=== PATIENT | female | born 2000 | race American Indian/Alaskan Native ===

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

== ENCOUNTER 2018-11-15 12:11 | Outpatient (CLI) | payer OTHER ==
[2018-11-15] MEDS ORDERED: LACTATED RINGERS 500 ML IV ONE (13:04)
[2018-11-15 13:39] LABS: Bacteria,Urine 2+ /HPF (Negative); Bilirubin,Urine NEG (Negative); Blood,Urine NEG (Negative); Color,Urine Yellow (Yellow); Mucus,Urine 2+ /HPF; WBC,Urine > 182.0 /HPF (0.0-6.0)
[2018-11-15 14:12] LABS: Hematocrit 30.6 % (30.3-42.9); Hemoglobin 10.5 gm/dl (10.1-14.3); Mean Corpuscular HGB Conc 34 % (30-34); Mean Corpuscular Volume 98 fl (79-97); Platelet Count 260 K/mm3 (140-440); Red Blood Count 3.14 M/mm3 (3.65-5.03); Red Cell Distribution Width 12.3 % (13.2-15.2)
[2018-11-15 14:20] VITALS: BP 114/68
[2018-11-15] MEDS ORDERED: TYLENOL PO ONE (14:30)
[2018-11-15 14:37] LABS: Alanine Aminotransferase 13 units/L (7-56)
[2018-11-15 15:41] LABS: Uric Acid 1.7 mg/dL (3.5-7.6)
== END 2018-11-15 14:50 | disposition home or self-care (01) ==
LOC: TRG 12:11
PROVIDERS: ATTEND Obstetrics & Gynecology
DX: O47.03 False labor before 37 completed weeks of gestation, third trimester (principal); Z3A.33 33 weeks gestation of pregnancy
CPT/HCPCS: 36415; 59025; 81001; 82565; 83615; 84450; 84460; 84550; 85027; 87086; 87186

== ENCOUNTER 2018-12-23 13:01 | Inpatient (IN) | payer OTHER ==
[2018-12-23 14:44] LABS: Hematocrit 29.5 % (30.3-42.9); Hemoglobin 9.9 gm/dl (10.1-14.3); Mean Corpuscular HGB Conc 34 % (30-34); Mean Corpuscular Volume 98 fl (79-97); Platelet Count 191 K/mm3 (140-440); Red Blood Count 3.02 M/mm3 (3.65-5.03); Red Cell Distribution Width 13.7 % (13.2-15.2)
[2018-12-23] MEDS ORDERED: LACTATED RINGERS 1,000 ML IV ONE (15:01)
[2018-12-23 15:09] LABS: Alanine Aminotransferase 13 units/L (7-56)
[2018-12-23 16:53] LABS: Bilirubin,Urine NEG (Negative); Blood,Urine LG (Negative); Color,Urine Yellow (Yellow); Mucus,Urine 1+ /HPF; Urobilinogen,Urine < 2.0 mg/dL (<2.0)
[2018-12-23 16:56] LABS: Protein,Urine >500 mg/dL (Negative); RBC,Urine > 182.0 /HPF (0.0-6.0)
--- NOTE | 2018-12-23 20:43 | Ultrasound Report ---
PROCEDURE: US OB BPP WO NON-STRESS TECHNIQUE: Sonographic evaluation for breathing, movement, tone, and amniotic flui d volume was performed. HISTORY: elevated BP COMPARISONS: None . FINDINGS: FETUS heart rate is 140 bpm Amniotic fluid volume 0. breathing: Normal-score 2 . movement: Normal-score 2 . tone: 0. Score: 4 of 8 . IMPRESSION: biophysical profile is 4. This document is electronically signed by Ulises Edmondson MD., December 23 2018 08:41:53 PM ET
[2018-12-23] MEDS ORDERED: SUBLIMAZE IV PRN (22:05)
[2018-12-23] MEDS ORDERED: BRETHINE IVP PRN (22:05)
[2018-12-23] MEDS ORDERED: NARCAN 0.4 MG/1 ML IV PRN (22:05)
[2018-12-23] MEDS ORDERED: BRETHINE SUB-Q PRN (22:05)
[2018-12-23] MEDS ORDERED: ZOFRAN IV PRN (22:05)
[2018-12-23] MEDS ORDERED: PHENERGAN PO PRN (22:05)
[2018-12-23] MEDS ORDERED: XYLOCAINE 2% INFILTRATI ONE (22:05)
[2018-12-23] MEDS ORDERED: MINERAL OIL PO PRN (22:05)
--- NOTE | 2018-12-23 22:08 | History and Physical Report ---
History of Present Illness Date of examination: 12/23/18 Date of admission: 12/23/18 13:02 Chief complaint: Sent from office for PIH work up History of present illness: 18 yo AA fe KAMILA 12/29/2018 (LMP) 39 weeks 1 day, sent from the office for evaluation of PIH. BPP 01/19. PIH labs WNL. Asymptomatic anemia. FHTs Tachycardia 160-170s. Afebrile. WBC wnl. Pt initiated early care with [facility] at 10w 2d. Positive chlamydia with Negative VIKA. labs: B positive, Rubella Immune, VDRL non-reactive, HbsAg Negative, HIV Negative, GC/Trich Negative. GBS Negative Past History Past Medical History: no pertinent history Past Surgical History: other (wrist surgery) [employer]TER History: chlamydia (Positive 06/11/2018, Negative VIKA). denies: abnormal PAP smear, gonorrhea, hepatitis B, hepatitis C, herpes, HIV, syphilis, trichomonas Family/Genetic History: heart disease Social history: no significant social history, single, lives with family, full code. denies: smoking, alcohol abuse, prescription drug abuse, IV drug use - Obstetrical History Expected Date of Delivery: 12/29/18 Actual Gestation: 39 Week(s) 1 Day(s) : 1 Para: 0 Hx # Term Pregnancies: 0 Number of Pregnancies: 0 Spontaneous Abortions: 0 Induced : 0 Number of Living Children: 0 Medications and Allergies Allergies Allergy/AdvReac Type Severity Reaction Status Date / Time coconut Allergy Angioedema Verified 09/08/17 11:41 nickel Allergy Rash Verified 09/08/17 11:41 Home Medications Medication Instructions Recorded Confirmed Last Taken Type Acetaminophen 500 mg PO Q6H PRN #30 tablet 07/25/18 Unknown Rx Amoxicillin/K Clav Tab [Augmentin 1 tab PO Q12HR #20 tab 07/25/18 Unknown Rx 875 mg] Review of Systems Eyes: normal appearance Cardiovascular: no chest pain, no shortness of breath Respiratory: no shortness of breath Breasts: normal Gastrointestinal: no abdominal pain, no nausea, no vomiting, no diarrhea, no constipation Genitourinary: normal appearance, no vaginal bleeding, no leakage of fluid, no genital sores, no contractions Integumentary: no rash, no wounds, no lesions Neurological: other (Denies) Psychiatric: other (Denies) Endocrine: other (Denies) - Vital Signs Vital signs: Vital Signs Pulse BP 81 140/76 12/23/18 13:16 12/23/18 13:16 Temp Pulse Resp BP Pulse Ox 98.6 F 79 18 144/81 96 12/23/18 13:17 12/23/18 22:02 12/23/18 13:17 12/23/18 22:00 12/23/18 22:02 - Physical Exam Breasts: Positive: normal Cardiovascular: Regular rate, Normal S1, Normal S2, No murmurs Lungs: Positive: Clear to auscultation, Normal air movement Abdomen: Positive: normal appearance, soft, normal bowel sounds. Negative: distention Genitourinary (Female): Positive: normal external genitalia, normal perenium Vulva: both: normal Vagina: Positive: normal moisture Uterus: Positive: enlarged (gravid) Anus/Rectum: Positive: normal perianal skin Extremities: Positive: normal Deep Tendon Reflex Grade: Normal +2 - Obstetrical FHR: category 2 FHR comments: tachycardia 165, minimal variability, no accels, no decels. Uterine Contraction Monitor Mode: External Cervical Dilatation: 2 (Cephalic) Cervical Effacement Percentage: 75 station: -3 Uterine Contraction Pattern: Irregular Uterine Tone Measurement Phase: Resting Uterine Contraction Intensity: Mild Results Result Diagrams: 12/23/18 13:43 12/23/18 13:43 Abnormal lab results 12/23/18 12/23/18 12/23/18 Range/Units 13:43 13:43 13:45 RBC 3.02 L (3.65-5.03) M/mm3 Hgb 9.9 L (10.1-14.3) gm/dl Hct 29.5 L (30.3-42.9) % MCV 98 H (79-97) fl MCH 33 H (28-32) pg Lactate Dehydrogenase 283 H (91-180) units/L Urine WBC (Auto) 34.0 H (0.0-6.0) /HPF All other labs normal. Assessment and Plan A: Term IUP at 39w1d GBS Negative Irregular contractions Category2 tracing BPP 4/10 tachycardia Nonreassuring NST P: Admit to L&D Consult with Dr. Castaneda: Pt remote from delivery with nonreassuring FHT and BPP 4/10. Plan to proceed with Primary section. Pt informed and agrees to POC.
[2018-12-23] MEDS ORDERED: LACTATED RINGERS 1,000 ML ONE (22:09)
[2018-12-23] MEDS ORDERED: BICITRA PO ONE (22:38)
[2018-12-23] MEDS ORDERED: PEPCID IV ONE (22:38)
[2018-12-23] MEDS ORDERED: REGLAN IV ONE (22:38)
[2018-12-23] MEDS ORDERED: PITOCin/NS 30 UNIT/500ML 30 UNITS/500 ML BAG IV SCH (23:00)
[2018-12-23] MEDS ORDERED: LACTATED RINGERS 1,000 ML IV SCH ×2 (23:00)
[2018-12-23] MEDS ORDERED: ANCEF/STERILE WATER 2 GM/20 ML 2 GM/20 ML SYRINGE IV NR (23:00)
[2018-12-23] MEDS ORDERED: PITOCin/NS 20 UNIT/1000ML DRIP 20 UNITS/1,000 ML BAG IV SCH ×2 (23:00)
[2018-12-23 23:15] LABS: Hematocrit 30.2 % (30.3-42.9); Hemoglobin 10.2 gm/dl (10.1-14.3)
[2018-12-24] MEDS ORDERED: ZOFRAN IV PRN (03:54)
[2018-12-24] MEDS ORDERED: PHENERGAN PR PRN (03:54)
[2018-12-24] MEDS ORDERED: NARCAN 0.4 MG/1 ML IV PRN ×2 (03:54→05:12)
[2018-12-24] MEDS ORDERED: PHENERGAN PO PRN (03:54)
--- NOTE | 2018-12-24 03:54 | Anesthesia Consultation ---
Anesthesia Consult and Med Hx Date of service: 12/24/18 - Airway Anesthetic Teeth Evaluation: Good ROM Head & Neck: Adequate Mental/Hyoid Distance: Adequate Mallampati Class: Class II Intubation Access Assessment: Probably Good - Pulmonary Exam CTA: Yes - Cardiac Exam Cardiac Exam: RRR - Pre-Operative Health Status ASA Pre-Surgery Classification: ASA2, Emergency Proposed Anesthetic Plan: Spinal - Pulmonary Hx Asthma: No COPD: No Hx Pneumonia: No - Cardiovascular System Hx Hypertension: No - Central Nervous System Hx Seizures: No Hx Psychiatric Problems: No - Endocrine Hx Renal Disease: No Hx End Stage Renal Disease: No Hx Hypothyroidism: No Hx Hyperthyroidism: No - Hematic Hx Anemia: No Hx Sickle Cell Disease: No - Other Systems Hx Alcohol Use: No
[2018-12-24] MEDS ORDERED: SUBLIMAZE ONE (03:58)
[2018-12-24] MEDS ORDERED: NACL 0.9% IR ONE (04:00)
[2018-12-24] MEDS ORDERED: WATER FOR IRRIG STERILE IR ONE (04:00)
[2018-12-24] MEDS ORDERED: SODIUM CHLORIDE FLUSH SYRINGE 10 ML IV PRN ×2 (04:00→06:00)
[2018-12-24] MEDS ORDERED: ZOFRAN ONE (04:23)
[2018-12-24] MEDS: PITOCin/NS 20 UNIT/1000ML DRIP 20 UNITS/1,000 ML BAG IV SCH ×2 (04:34→05:52)
--- NOTE | 2018-12-24 05:11 | Operative Report ---
Operative Report Operative Report: Date of procedure: 12/24/2018 Pre-operative diagnosis: 1. Intrauterine at 39-1/7 weeks 2. Non-r eassuring surveillance Post-operative diagnosis: Same Procedure name(s): Primary low transverse section Surgeon: Mazin Castaneda MD Acupressure Therapist: None Anesthesia: Spinal anesthesia by Dr. Momin EBL: 600 mL Findings: A 2696 g female infant Apgars 8 at 1 minute 9 at 5 minutes. Clear amniotic fluid. Nuchal cord 1. Normal uterus. Normal tubes and ovaries bilaterally Procedure: After the patient was prepped and draped in usual sterile fashion, and after satisfactory level of epidural anesthesia was obtained, the skin knife was used to make a transverse skin incision. The incision was excised down to layer of the fascia, which was nicked in the midline and extended laterally using the Bovie cautery. The rectus muscles were dissected off the rectus fascia both superiorly and inferiorly. The rectus bellies in the midline, and the peritoneum was entered under direct visualization. The peritoneal incision was extended superiorly and inferiorly. A bladder flap was created and the bladder blade was then placed. The uterus was scored in a curvilinear linear fashion, entered in the midline revealing clear amniotic fluid. The 's head was delivered onto the surgical field, nuchal cord 1 reduced and the oropharynx and nasopharynx were bulb suctioned. The rest of the 's body was delivered, cord was doubly clamped and cut and the infant was handed to the waiting respiratory team. The placenta was manually removed from the uterus, and the uterus removed from its normal anatomical position. After gentle uterine lavage, the incision was inspected and found to be without extensions. It was then closed in 2 layers using 0 Vicryl suture in a running interlocking fashion, the second layer imbricating the first. After good hemostasis was achieved, copious amounts or irrigation was performed, and the gutters were suctioned free of blood and blood clots. Tisseel sealant was sprayed across the uterine incision. The uterus was then returned to its normal anatomical position, and after excellent hemostasis assured, the peritoneum was re-approximated using 3-0 Vicryl suture in a running interlocking fashion, and then the rectus muscles were re-approximated using 3-0 Vicryl suture in a [id number] configuration. The fascia was then re-approximated using 0 Vicryl suture in running interlocking fashion. The subcutaneous layer was made hemostatic using Bovie cautery, the Tisseel sealant was sprayed across the fascial incision and the skin edges re-approximated using 4-0 Vicryl suture in a sub-cuticular fashion. Patient tolerated the procedure well was transported to recovery in stable condition.
[2018-12-24] MEDS ORDERED: TORADOL IV PRN (05:12)
[2018-12-24] MEDS ORDERED: MILK OF MAGNESIA PO PRN (05:12)
[2018-12-24] MEDS ORDERED: LANSINOH TP PRN (05:12)
[2018-12-24] MEDS ORDERED: TUCKS PAD TP PRN (05:12)
[2018-12-24] MEDS ORDERED: MYLICON PO PRN (05:12)
[2018-12-24] MEDS ORDERED: SENOKOT PO PRN (05:12)
[2018-12-24] MEDS ORDERED: D5LR 1,000 ML IV SCH (06:00)
[2018-12-24] MEDS: PERCOCET 5/325 PO PRN ×2 (07:17→14:14)
[2018-12-24] MEDS: IBUPROFEN PO PRN ×2 (07:19→14:15)
[2018-12-24] MEDS: PRENATAL VITAMIN PO SCH (11:00)
[2018-12-24] MEDS: FEOSOL PO SCH (11:00)
[2018-12-24] MEDS: ANCEF/NS 1 GM/50 ML 1 GM/50 ML BAG IV SCH (16:46)
[2018-12-24 18:43] LABS: Hematocrit 27.5 % (30.3-42.9); Hemoglobin 9.5 gm/dl (10.1-14.3)
[2018-12-25] MEDS: NORCO 5/325 PO PRN (02:39)
[2018-12-25] MEDS: IBUPROFEN PO PRN ×3 (02:40→20:32)
[2018-12-25] MEDS: ANCEF/NS 1 GM/50 ML 1 GM/50 ML BAG IV SCH (02:41)
[2018-12-25] MEDS ORDERED: M-M-R II VACCINE SUB-Q ONE ×2 (05:14→10:00)
[2018-12-25] MEDS ORDERED: BOOSTRIX IM ONE (06:00)
[2018-12-25] MEDS: PERCOCET 5/325 PO PRN ×2 (08:28→17:51)
[2018-12-25] MEDS: FEOSOL PO SCH (11:00)
[2018-12-25] MEDS: PRENATAL VITAMIN PO SCH (11:01)
--- NOTE | 2018-12-25 15:04 | Progress Note ---
Assessment and Plan A: /postop day 1 S/P primary low transverse section. Anemia secondary to and blood loss. Labile blood pressures. P: Recheck blood pressure. Labetalol po. PreE labs (urinalysis, CBC, CMP). Iron supplementation. Patient is currently asymptomatic; warning signs discussed with pt. Subjective - Subjective Date of service: 12/25/18 Principal diagnosis: /postop day 1 S/P primary low transverse section Interval history: /postop day 1 S/P primary low transverse section. Patient is doing well. She reports small amount of lochia and no large clots. Patient is voiding without difficulty, ambulating well, passing gas, tolerating a regular diet without nausea or vomiting. Patient denies headache, visual disturbance, chest pain, shortness of breath, leg pain, abdominal pain, swelling, heavy bleeding or any other problems. Patient reports: appetite normal, voiding normally, pain well controlled, flatus, bowel movement, ambulating normally, no dizzy ambulation, no nauseated : doing well Objective - Vital Signs Latest vital signs: Vital Signs Temp Pulse Resp BP BP Pulse Ox 12/25/18 08:10 98.5 F 72 20 147/98 97 12/25/18 06:10 97.8 F 70 18 133/85 12/25/18 01:40 98.1 F 78 18 147/87 12/24/18 21:25 97.9 F 79 20 129/79 12/24/18 17:32 98.9 F 75 18 144/90 98 Intake and Output 12/24/18 12/25/18 12/25/18 23:59 07:59 15:59 Intake Total 1530 260 120 Output Total 1300 Balance 230 260 120 Intake: IV 50 ANCEF/NS 1 GM/50 ML 1 gm 50 In 50 ml @ 100 mls/hr IV Q8H [facility] Rx#:[id number] Oral 840 120 Intake, Free Water 640 260 Output: Urine 1300 Indwelling Catheter 1300 Other: Total, Intake Amount 840 120 Total, Output Amount 1300 # Voids Void 1 1 - Exam Cardiovascular: Present: Regular rate, Normal S1, Normal S2 Lungs: Present: Clear to auscultation Abdomen: Present: normal appearance, soft, normal bowel sounds. Absent: distention, tenderness, guarding, rigidity Uterus: Present: normal, firm, fundal height below umbilicus. Absent: bogginess, tenderness Extremities: Present: normal, edema (edema of both ankles and feet). Absent: tenderness Incision: Present: normal, dry, intact, dressed - Labs Labs: Abnormal lab results 12/24/18 Range/Units 17:50 Hgb 9.5 L (10.1-14.3) gm/dl Hct 27.5 L (30.3-42.9) %
[2018-12-25] MEDS ORDERED: NORMODYNE PO SCH ×3 (16:00→20:00)
[2018-12-25 16:59] LABS: Basophils % (Auto) 0.2 % (0.0-1.8); Eosinophils # (Auto) 0.1 K/mm3 (0.0-0.4); Eosinophils % (Auto) 0.7 % (0.0-4.3); Hematocrit 28.7 % (30.3-42.9); Hemoglobin 9.6 gm/dl (10.1-14.3); Lymphocytes # (Auto) 2.1 K/mm3 (1.2-5.4); Lymphocytes % (Auto) 18.9 % (13.4-35.0); Mean Corpuscular HGB Conc 33 % (30-34); Mean Corpuscular Volume 98 fl (79-97); Monocytes % (Auto) 9.1 % (0.0-7.3); Platelet Count 195 K/mm3 (140-440); Red Blood Count 2.93 M/mm3 (3.65-5.03)
[2018-12-25 17:08] LABS: Alanine Aminotransferase 22 units/L (7-56); Albumin 2.6 g/dL (3.9-5); BUN/Creatinine Ratio 14; Blood Urea Nitrogen 7 mg/dL (7-17); Calcium 8.2 mg/dL (8.4-10.2); Hemolysis Index 9
[2018-12-25 17:36] LABS: Bilirubin,Urine NEG (Negative); Blood,Urine LG (Negative); Color,Urine Red (Yellow); Urobilinogen,Urine < 2.0 mg/dL (<2.0)
[2018-12-25 17:39] LABS: RBC,Urine > 182.0 /HPF (0.0-6.0)
[2018-12-25] MEDS ORDERED: NORMODYNE PO ONE (19:20)
--- NOTE | 2018-12-25 19:55 | Event Note ---
Date: 12/25/18 Several elevated blood pressures. Patient denies headache, visual disturbance, nausea or vomiting, abdominal or epigastric pain. Has dependent edema only; no generalized edema. Increased Labetalol dose to 100 mg po BID. Consulted with Dr. Cade re: this patient and elevated blood pressure and interventions taken.
[2018-12-25] MEDS: D5LR 500 ML IV SCH (22:40)
[2018-12-25] MEDS: ROCEPHIN/NS 1 GM/50 ML 1 GM/50 ML BAG IV SCH (22:40)
[2018-12-26] MEDS: PERCOCET 5/325 PO PRN ×2 (02:21→08:48)
[2018-12-26] MEDS: NORMODYNE PO SCH ×3 (05:46→22:17)
[2018-12-26] MEDS: PRENATAL VITAMIN PO SCH (09:42)
[2018-12-26] MEDS: ROCEPHIN/NS 1 GM/50 ML 1 GM/50 ML BAG IV SCH ×2 (09:42→22:17)
[2018-12-26] MEDS: FEOSOL PO SCH (09:42)
[2018-12-26] MEDS: IBUPROFEN PO PRN (16:47)
[2018-12-26] MEDS: NORCO 5/325 PO PRN (16:48)
--- NOTE | 2018-12-26 23:48 | Progress Note ---
Assessment and Plan A: day 2 S/P low transverse section. Anemia secondary to and blood loss. P: Continue iron supplementation. Continue PO Labetalol. Subjective - Subjective Date of service: 12/26/18 Principal diagnosis: /postop day 2 S/P primary low transverse section Interval history: /postop day 2 S/P primary low transverse section. Patient is doing well. She reports small amount of lochia and no large clots. Patient is voiding without difficulty, ambulating well, passing gas, tolerating a regular diet without nausea or vomiting. Patient denies headache, visual disturbance, chest pain, shortness of breath, leg pain, abdominal pain, swelling, heavy bleeding or any other problems. Patient reports: appetite normal, voiding normally, pain well controlled, flatus, ambulating normally, no dizzy ambulation, no nauseated : doing well Objective - Vital Signs Latest vital signs: Vital Signs Temp Pulse Resp BP BP Pulse Ox 12/26/18 21:04 98.6 F 74 20 144/76 95 12/26/18 16:45 98.9 F 76 20 149/91 96 12/26/18 12:37 99.4 F 81 20 140/87 98 12/26/18 09:43 73 140/73 12/26/18 07:58 98.5 F 78 20 140/81 96 12/26/18 05:46 75 136/69 12/26/18 04:55 98.7 F 75 18 138/69 12/26/18 01:50 98.8 F 76 20 153/89 Intake and Output 12/26/18 12/26/18 12/26/18 07:59 15:59 23:59 Intake Total 240 290 240 Balance 240 290 240 Intake: IV 50 ROCEPHIN/NS 1 GM/50 ML 1 50 gm In 50 ml @ 100 mls/hr IV Q12HR [facility] Rx#: [id number] Oral 240 240 Intake, Free Water 240 Other: Total, Intake Amount 240 240 Voiding Method Toilet # Voids Void 2 1 1 # Bowel Movements 1 - Exam Abdomen: Present: normal appearance, soft. Absent: distention, tenderness, guarding, rigidity Uterus: Present: normal, firm, fundal height below umbilicus. Absent: bogginess, tenderness Extremities: Present: normal. Absent: tenderness, edema Incision: Present: normal, dry, intact
[2018-12-27] MEDS: PERCOCET 5/325 PO PRN ×4 (02:46→23:20)
[2018-12-27] MEDS ORDERED: NORMODYNE ONE (09:29)
[2018-12-27] MEDS: FEOSOL PO SCH (11:52)
[2018-12-27] MEDS: PRENATAL VITAMIN PO SCH (11:53)
[2018-12-27] MEDS: NORMODYNE PO SCH ×2 (11:55→18:35)
[2018-12-27 13:20] LABS: Bacteria,Urine 1+ /HPF (Negative); Bilirubin,Urine NEG (Negative); Blood,Urine MOD (Negative); Color,Urine Straw (Yellow); Urobilinogen,Urine < 2.0 mg/dL (<2.0)
[2018-12-27 13:38] LABS: Hematocrit 26.6 % (30.3-42.9); Mean Corpuscular HGB Conc 34 % (30-34); Mean Corpuscular Volume 97 fl (79-97); Platelet Count 213 K/mm3 (140-440); Red Blood Count 2.74 M/mm3 (3.65-5.03); Red Cell Distribution Width 14.6 % (13.2-15.2)
[2018-12-27 13:57] LABS: Uric Acid 3.4 mg/dL (3.5-7.6)
--- NOTE | 2018-12-27 14:21 | Progress Note ---
Assessment and Plan - Patient Problems (1) S/P primary low transverse Current Visit: Yes Status: Acute Plan to address problem: POD #3 - Elevated BPs Continue routine postop orders Ambulation encouraged as tolerated Anticipate discharge based on lab results (2) Gestational hypertension Current Visit: Yes Status: Acute Plan to address problem: BPs elevated - asymptomatic Continue antihypertensive therapy: Labetalol 200mg PO BID PIH labs ordered (3) Anemia due to blood loss, acute Current Visit: Yes Status: Acute Plan to address problem: Asymptomatic Continue iron therapy: Ferrous sulfate 325mg PO QDAY Subjective - Subjective Date of service: 12/27/18 Principal diagnosis: POD #3; s/p Primary LTCS; Gestational HTN Interval history: see H&P, Operative Report, Even Note, PP/HEALTH AND SAFETY TECH Progress Notes Patient reports: appetite normal, voiding normally, pain well controlled, flatus, bowel movement, ambulating normally, other (denies headache, visual disturbances or RUQ pain), no dizzy ambulation Lucas: doing well, other (breast and bottle feeding) Objective - Vital Signs Latest vital signs: Vital Signs Temp Pulse Resp BP BP Pulse Ox 12/27/18 13:00 97 F L 75 20 154/90 12/27/18 11:55 68 154/103 12/27/18 11:53 20 12/27/18 09:30 68 154/103 12/27/18 08:45 97.8 F 68 20 154/103 12/27/18 02:46 18 12/27/18 01:16 98.2 F 78 20 144/82 96 12/26/18 21:04 98.6 F 74 20 144/76 95 12/26/18 16:45 98.9 F 76 20 149/91 96 Intake and Output 12/26/18 12/27/18 12/27/18 23:59 07:59 15:59 Intake Total 240 240 120 Balance 240 240 120 Intake: Oral 240 240 120 Other: Total, Intake Amount 240 240 120 # Voids Void 1 1 1 # Bowel Movements 1 - Exam Cardiovascular: Present: Regular rate Lungs: Present: Clear to auscultation Abdomen: Present: normal appearance, soft Vulva: both: normal Uterus: Present: normal, firm, fundal height below umbilicus Incision: Present: normal, dry, intact (steri strips in place) Comments: scant lochia - Labs Labs: Abnormal lab results 12/27/18 12/27/18 12/27/18 Range/Units 12:48 13:21 13:21 WBC 13.4 H (4.5-11.0) K/mm3 RBC 2.74 L (3.65-5.03) M/mm3 Hgb 9.0 L (10.1-14.3) gm/dl Hct 26.6 L (30.3-42.9) % MCH 33 H (28-32) pg Uric Acid 3.4 L (3.5-7.6) mg/dL AST 65 H (5-40) units/L Lactate Dehydrogenase 379 H (91-180) units/L Urine WBC (Auto) 10.0 H (0.0-6.0) /HPF
[2018-12-27] MEDS ORDERED: MAGNESIUM SULFATE 4GM/100ML 4 GM/100 ML BAG IV ONE ×2 (14:43→15:21)
--- NOTE | 2018-12-27 14:55 | Progress Note ---
Assessment and Plan - Patient Problems (1) S/P primary low transverse Current Visit: Yes Status: Acute (2) Pre-eclampsia Current Visit: Yes Status: Acute Plan to address problem: Will start magnesium sulfate loading and maintenance at 2gm/hr. Monitor Mg level, urine output, DTRs. Monitor BP. Continue labetolol 200 mg BID. Will give hydralazine as needed for BP>100. Subjective - Subjective Date of service: 12/27/18 Principal diagnosis: POD #3; s/p Primary LTCS, pre-eclampsia Interval history: Patient is a 18 year old who is S/P primary C/section 3 days ago for non-reassuring tracing. She was admitted on 12/23/18 for labor induction d ue to elevated BP. During active labor, she developed distress and was delivered via C/section. Her BP became stable. On POD#1, her BP became elevated again. Toxemia labs were normal. She was s tarted on labetolol 200 mg BID. Today, her BP was noticed to be still unstable in the 150's/90-100's. She denies any symptoms. Toxemia labs showed elevated LFTs. Objective - Vital Signs Latest vital signs: Vital Signs Temp Pulse Resp BP BP Pulse Ox 12/27/18 13:00 97 F L 75 20 154/90 12/27/18 11:55 68 154/103 12/27/18 11:53 20 12/27/18 09:30 68 154/103 12/27/18 08:45 97.8 F 68 20 154/103 12/27/18 02:46 18 12/27/18 01:16 98.2 F 78 20 144/82 96 12/26/18 21:04 98.6 F 74 20 144/76 95 12/26/18 16:45 98.9 F 76 20 149/91 96 Intake and Output 12/26/18 12/27/18 12/27/18 23:59 07:59 15:59 Intake Total 240 240 120 Balance 240 240 120 Intake: Oral 240 240 120 Other: Total, Intake Amount 240 240 120 # Voids Void 1 1 1 # Bowel Movements 1 - Exam Cardiovascular: Present: Normal S1, Normal S2 Lungs: Present: Clear to auscultation Vulva: both: normal Deep Tendon Reflex Grade: Normal but brisk +3 - Labs Labs: Abnormal lab results 12/27/18 12/27/18 12/27/18 Range/Units 12:48 13:21 13:21 WBC 13.4 H (4.5-11.0) K/mm3 RBC 2.74 L (3.65-5.03) M/mm3 Hgb 9.0 L (10.1-14.3) gm/dl Hct 26.6 L (30.3-42.9) % MCH 33 H (28-32) pg Uric Acid 3.4 L (3.5-7.6) mg/dL AST 65 H (5-40) units/L Lactate Dehydrogenase 379 H (91-180) units/L Urine WBC (Auto) 10.0 H (0.0-6.0) /HPF
[2018-12-27] MEDS ORDERED: MAGNESIUM SULFATE 40GM/1000ML 40 GM/1,000 ML BAG IV SCH (15:00)
[2018-12-27] MEDS ORDERED: ROCEPHIN/NS 1 GM/50 ML 1 GM/50 ML BAG IV SCH (15:00)
[2018-12-27] MEDS ORDERED: LACTATED RINGERS 1,000 ML ONE ×2 (15:22→22:26)
[2018-12-27] MEDS ORDERED: MAGNESIUM SULFATE 40GM/1000ML 40 GM/1,000 ML BAG IV ONE (15:58)
[2018-12-27] MEDS ORDERED: APRESOLINE IV PRN (18:15)
[2018-12-27] MEDS: ROCEPHIN/NS 1 GM/50 ML 1 GM/50 ML BAG IV SCH (23:09)
[2018-12-28] MEDS: TYLENOL PO PRN ×2 (01:43→16:40)
[2018-12-28] MEDS: NORMODYNE PO SCH ×3 (06:11→18:27)
--- NOTE | 2018-12-28 10:05 | XRay Report ---
AP CHEST: HISTORY: Leukocytosis, fever AP view of the chest demonstrates a normal mediastinal and cardiac contour with clear lungs and normal bony and soft tissue structures. IMPRESSION: Unremarkable AP chest.
[2018-12-28] MEDS: PRENATAL VITAMIN PO SCH (11:11)
[2018-12-28] MEDS: FEOSOL PO SCH (11:11)
--- NOTE | 2018-12-28 16:46 | Progress Note ---
Assessment and Plan - Patient Problems (1) fever Current Visit: Yes Status: Acute Plan to address problem: Differential diagnosis: Atelectasis, Pneumonia, Wound infection, Urinary tract infection, URI, mastitis. CXR normal. Urine cx pending. Order blood cultures x 2 peripheral sites Tylenol for fever Start Clindamycin, Gentamicin CBC w diff STAT Subjective - Subjective Principal diagnosis: POD #3; s/p Primary LTCS, pre-eclampsia Interval history: 18yo s/p Primary csection now with fever. CXR negative Ulrine culture pending Incision no signs of infection Mons pubis papules from razor shaving Patient denies any URI symptoms, no chest pain, shortness of breath and abdominal pain is appropriate post-csection. She is breast feeding. She is currently on magnesium sulfate for preeclampsia. Objective - Vital Signs Latest vital signs: Vital Signs Temp Pulse Resp BP BP Pulse Ox 12/28/18 12:00 99.3 F 89 18 148/92 12/28/18 06:11 77 136/86 12/28/18 05:20 77 18 136/86 12/28/18 01:55 97 F L 79 18 133/78 12/28/18 00:07 86 18 139/81 12/27/18 22:55 100 F H 91 H 18 148/94 12/27/18 21:18 89 156/96 12/27/18 21:00 101.3 F H 89 18 156/96 12/27/18 20:13 93 H 151/73 12/27/18 20:08 92 H 153/80 12/27/18 20:03 103 H 141/76 12/27/18 19:58 96 H 149/78 12/27/18 19:53 96 H 157/79 12/27/18 19:48 99 H 156/81 12/27/18 19:43 100 H 156/82 12/27/18 19:38 100 H 157/86 12/27/18 19:33 100 H 152/88 12/27/18 19:28 98 H 160/87 12/27/18 19:23 99 H 151/85 12/27/18 19:18 98 H 159/82 12/27/18 19:13 100 H 159/83 12/27/18 19:08 101 H 156/83 12/27/18 19:03 101 H 158/85 12/27/18 18:58 99 H 161/85 12/27/18 18:53 94 H 169/91 12/27/18 18:48 93 H 167/95 12/27/18 18:44 97 H 158/81 12/27/18 18:38 88 170/95 12/27/18 18:33 86 164/99 12/27/18 18:28 86 168/104 12/27/18 18:23 88 168/92 12/27/18 18:18 93 H 166/87 12/27/18 18:14 88 166/86 12/27/18 18:08 82 164/98 12/27/18 18:03 80 170/100 12/27/18 17:58 78 168/102 12/27/18 17:53 77 168/104 12/27/18 17:48 79 165/103 12/27/18 17:43 81 162/104 12/27/18 17:38 82 156/99 12/27/18 17:35 85 16 156/101 12/27/18 17:34 85 156/101 12/27/18 17:32 98.6 F 92 H 159/102 159/102 12/27/18 17:31 92 H 16 160/98 160/98 12/27/18 17:28 89 16 162/105 165/105 98 12/27/18 17:13 80 154/98 12/27/18 16:58 91 H 167/110 Intake and Output 12/28/18 12/28/18 12/28/18 07:59 15:59 23:59 Output Total 500 2000 Balance -500 -1999 Output: Urine 500 2000 Indwelling Catheter 500 1000 Void 1000 Other: Total, Output Amount 500 1000
[2018-12-28] MEDS ORDERED: GENTAMICIN/NS 80 MG/100 ML 100 ML IV SCH (17:00)
[2018-12-28] MEDS: D5LR 500 ML IV SCH (17:05)
[2018-12-28] MEDS: CLEOCIN 900 MG/50 mL 900 MG/50 ML BAG IV SCH (17:59)
[2018-12-28 19:52] LABS: Basophils % (Auto) 0.1 % (0.0-1.8); Eosinophils # (Auto) 0.1 K/mm3 (0.0-0.4); Eosinophils % (Auto) 0.5 % (0.0-4.3); Hematocrit 29.9 % (30.3-42.9); Hemoglobin 10.1 gm/dl (10.1-14.3); Lymphocytes # (Auto) 1.2 K/mm3 (1.2-5.4); Lymphocytes % (Auto) 7.6 % (13.4-35.0); Mean Corpuscular HGB Conc 34 % (30-34); Mean Corpuscular Volume 97 fl (79-97); Monocytes # (Auto) 1.4 K/mm3 (0.0-0.8); Monocytes % (Auto) 9.4 % (0.0-7.3); Platelet Count 268 K/mm3 (140-440); Red Blood Count 3.09 M/mm3 (3.65-5.03); Red Cell Distribution Width 14.6 % (13.2-15.2)
[2018-12-28] MEDS: GENTAMICIN/NS 120MG/100ML 120 MG/100 ML BAG IV SCH (22:23)
--- NOTE | 2018-12-28 23:00 | Event Note ---
Chart reviewed 12/28/17. Plan: Urine culture collected 12/27 contaminated Urine culture collected 12/28 - pending. Called lab to verify results told tech would follow-up on order. Blood cultures - done. Pending WBC 13-->15 Gent/Clindmycin started. Consider starting Ampicillin if no improvement. Rocephin stopped. Continue Q4h temperatures. If fever not resolved in 24 hrs will order ID consult.
[2018-12-28] MEDS: ROCEPHIN/NS 1 GM/50 ML 1 GM/50 ML BAG IV SCH (23:06)
[2018-12-28] MEDS: PERCOCET 5/325 PO PRN (23:11)
[2018-12-29] MEDS: CLEOCIN 900 MG/50 mL 900 MG/50 ML BAG IV SCH ×3 (01:55→17:27)
[2018-12-29] MEDS: GENTAMICIN/NS 120MG/100ML 120 MG/100 ML BAG IV SCH ×2 (05:51→14:00)
[2018-12-29] MEDS: NORMODYNE PO SCH ×3 (05:54→21:49)
--- NOTE | 2018-12-29 10:31 | Progress Note ---
Assessment and Plan - Patient Problems (1) S/P primary low transverse Current Visit: Yes Status: Acute (2) Pre-eclampsia Current Visit: Yes Status: Acute Plan to address problem: S/P magnesium sulfate. Monitor BP. Continue labetolol 200 mg BID. Will give hydralazine as needed for BP>100. (3) Febrile illness Current Visit: Yes Status: Acute Plan to address problem: Patient is on gent/clinda. Urine and blood cultures pending. Subjective - Subjective Date of service: 12/29/18 Principal diagnosis: POD #3; s/p Primary LTCS, pre-eclampsia Interval history: Patient is a 18 year old who is S/P primary C/section 5 days ago for non-reassuring tracing. She was admitted on 12/23/18 for labor induction due to elevated BP. During active labor, she developed distress and was delivered via C/section. Her BP became stable. On POD#1, her BP became elevated again. Toxemia labs were normal. She was started on labetolol 200 mg BID. On POD#3, she developed pre-eclampsia and was treated with magnesium sulfate which was discontinued yesterday. She developed fever yesterday, WBC is 15. She was started on gent/clinda for presumed postop endometritis. Urine and blood Cx were sent. Objective - Vital Signs Latest vital signs: Vital Signs Temp Pulse Resp BP BP Pulse Ox 12/29/18 08:57 99.4 F 85 20 146/83 96 12/29/18 05:54 72 143/85 12/29/18 04:00 98.7 F 62 18 133/67 12/29/18 00:30 98.7 F 77 18 143/83 12/28/18 23:11 18 12/28/18 20:45 99.9 F H 88 20 148/90 12/28/18 20:15 100.3 F H 18 143/90 12/28/18 16:12 101.4 F H 85 18 146/89 12/28/18 12:00 99.3 F 89 18 148/92 12/28/18 11:15 147/94 Intake and Output 12/28/18 12/29/18 12/29/18 23:59 07:59 15:59 Intake Total 390 720 Output Total 1999 Balance -1610 720 Intake: IV 150 CLEOCIN 900 MG/50 mL 900 50 mg In 50 ml @ 100 mls/hr IV Q8HR [facility] Rx#:[id number] GARAMYCIN/NS 120MG/100ML 100 120 mg In 100 ml @ 200 mls/hr IV Q8HR [facility] Rx#: [id number] Oral 240 360 Intake, Free Water 360 Output: Urine 2000 Indwelling Catheter 2000 Other: Total, Intake Amount 240 360 Total, Output Amount 1000 # Voids Indwelling Catheter 1 # Bowel Movements 1 1 - Exam Cardiovascular: Present: Normal S1, Normal S2 Vulva: both: normal Deep Tendon Reflex Grade: Normal +2 - Labs Labs: Abnormal lab results 12/28/18 Range/Units 19:34 WBC 15.2 H (4.5-11.0) K/mm3 RBC 3.09 L (3.65-5.03) M/mm3 Hct 29.9 L (30.3-42.9) % MCH 33 H (28-32) pg Lymph % (Auto) 7.6 L (13.4-35.0) % [place] % (Auto) 9.4 H (0.0-7.3) % [place] # 1.4 H (0.0-0.8) K/mm3 Seg Neutrophils % 82.4 H (40.0-70.0) % Seg Neutrophils # 12.5 H (1.8-7.7) K/mm3
[2018-12-29] MEDS: FEOSOL PO SCH (11:50)
[2018-12-29] MEDS: PRENATAL VITAMIN PO SCH (11:51)
[2018-12-30 01:38] LABS: Hematocrit 27.9 % (30.3-42.9); Hemoglobin 9.3 gm/dl (10.1-14.3); Mean Corpuscular HGB Conc 34 % (30-34); Mean Corpuscular Volume 98 fl (79-97); Platelet Count 250 K/mm3 (140-440); Red Blood Count 2.84 M/mm3 (3.65-5.03); Red Cell Distribution Width 14.3 % (13.2-15.2)
[2018-12-30] MEDS: NORMODYNE PO SCH (10:25)
[2018-12-30] MEDS: PRENATAL VITAMIN PO SCH (10:26)
[2018-12-30] MEDS: FEOSOL PO SCH (10:26)
--- NOTE | 2018-12-30 14:41 | Progress Note ---
Assessment and Plan - Patient Problems (1) S/P primary low transverse Current Visit: Yes Status: Acute Plan to address problem: Patient dudley be discharged home today. Precautions given. She is to F/U in office in 3 days for wound check. (2) Pre-eclampsia Current Visit: Yes Status: Acute Plan to address problem: S/P magnesium sulfate. Monitor BP. Continue labetolol 200 mg BID and norvasc QD. Pt to go to the office in 2 days for BP check. (3) Febrile illness Current Visit: Yes Status: Acute Plan to address problem: Patient is S/P gent/clinda. She has been afebrile for over 24 hrs. blood cultures negative. Subjective - Subjective Date of service: 12/30/18 Principal diagnosis: POD #3; s/p Primary LTCS, pre-eclampsia Interval history: Patient is a 18 year old who is S/P primary C/section 6 days ago for non-reassuring tracing. She was admitted on 12/23/18 for labor induction due to elevated BP. During active labor, she developed distress and was delivered via C/section. Her BP became stable. On POD#1, her BP became elevated again. Toxemia labs were normal. She was started on labetolol 200 mg BID. On POD#3, she developed pre-eclampsia and was treated with magnesium sulfate which was discontinued yesterday. She developed fever yesterday, WBC is 15. She was started on gent/clinda for presumed postop endometritis. Urine culture grew enterococcus. Blood Cx was negative. Today, she denies any complaint. She has been passing gas and BM. She is tolerating regular diet well. Objective - Vital Signs Latest vital signs: Vital Signs Temp Pulse Resp BP BP Pulse Ox 12/30/18 10:25 146/90 12/30/18 09:26 99.2 F 60 18 145/84 97 12/30/18 04:07 98.7 F 67 18 148/90 12/30/18 01:23 98.0 F 76 20 142/86 99 12/29/18 23:50 98.2 F 71 20 140/85 100 12/29/18 21:49 66 145/89 12/29/18 16:47 99.2 F 76 18 129/72 96 Intake and Output 12/29/18 12/30/1819 23:59 07:59 15:59 Intake Total 1080 Balance 1080 Intake: Oral 360 Intake, Free Water 720 Other: Total, Intake Amount 360 # Voids Indwelling Catheter 4 Void 1 # Bowel Movements 4 1 - Exam Cardiovascular: Present: Normal S1, Normal S2 Lungs: Present: Clear to auscultation Vulva: both: normal Deep Tendon Reflex Grade: Normal +2 - Labs Labs: Abnormal lab results 12/30/18 Range/Units 01:08 RBC 2.84 L (3.65-5.03) M/mm3 Hgb 9.3 L (10.1-14.3) gm/dl Hct 27.9 L (30.3-42.9) % MCV 98 H (79-97) fl MCH 33 H (28-32) pg
--- NOTE | 2018-12-30 14:48 | Discharge Summary ---
Providers - Providers Date of Admission: 12/23/18 13:02 Date of discharge: 12/30/18 Attending physician: GIANCARLO CARBAJAL MD Primary care physician: GIANCARLO CARBAJAL MD Hospitalization Reason for admission: active labor Delivery: Procedure: section complications: other (pre-eclampsia, fever, endometritis, anemia) Condition at discharge: Stable Disposition: - TO HOME OR SELFCARE - Discharge Diagnoses (1) S/P primary low transverse Status: Acute Comment: Patient to avoid lifting over 15 lbs for 6 weeks. (2) Pre-eclampsia Status: Acute Comment: Patient was told to continue labetolol 200 mg BID and norvasc 10 mg QD. (3) Febrile illness Status: Acute Comment: S/P IV antibiotics. Blood cx negative. (4) Anemia due to blood loss, acute Status: Acute Comment: Continue iron Plan - Discharge Medications Prescriptions: Ferrous Sulfate [Feosol 325 MG tab] 325 mg PO BID #60 tablet Ibuprofen [Motrin] 800 mg PO Q8HR PRN #30 tablet PRN Reason: Pain, Mild (1-3) Ibuprofen [Motrin] 800 mg PO Q8HR PRN #20 tablet PRN Reason: Pain, Moderate (4-6) HYDROcodone/APAP 5-325 [[place] 5/325] 1 each PO Q6HR PRN #30 tablet PRN Reason: Pain Labetalol [Normodyne TAB] 200 mg PO BID #60 tablet amLODIPine [Norvasc] 10 mg PO DAILY #30 tab oxyCODONE /ACETAMINOPHEN [Percocet 5/325] 1 tab PO Q4HR #14 tab Pnv No.95/Ferrous Fum/Folic AC [ Vitamin Tablet] 1 each PO DAILY #30 tablet - Provider Discharge Summary Activity: no sex for 6 weeks, no heavy lifting 4 weeks, no strenuous exercise Additional instructions: [] Smoking cessation referral if applicable(refer to patient education folder for contact #) [] Refer to [facility] Booklet Call your doctor immediately for: * Fever > 100.5 * Heavy vaginal bleeding ( >1 pad per hour) * Severe persistent headache * Shortness of breath * Reddened, hot, painful area to leg or breast * Drainage or odor from incision. * Keep incision clean and dry at all times and follow doctor's instructions regarding bathing/showering - Follow up plan Follow up: GIANCARLO CARBAJAL MD [Primary Care Provider] - 7 Days
[2018-12-30 16:22] VITALS: BP 137/70
== END 2018-12-30 16:00 | disposition home or self-care (01) | DRG 765 ==
LOC: TRG 13:01 → LD 13:02 → TRG 13:02 → OB 12-24 07:10 → LD 12-27 16:45 → APU 12-27 20:34 → OB 12-28 21:02
PROVIDERS: ADMIT Obstetrics & Gynecology; ATTEND Obstetrics & Gynecology
PROC: 10D00Z1 Extraction of Products of Conception, Low, Open Approach (ICD-10-PCS; principal; 2018-12-24)
PROC: 3E0234Z Introduction of Serum, Toxoid and Vaccine into Muscle, Percutaneous Approach (ICD-10-PCS; 2018-12-25)
DX: O76 Abnormality in fetal heart rate and rhythm complicating labor and delivery (principal); O75.3 Other infection during labor; O13.4 Gestational [pregnancy-induced] hypertension without significant proteinuria, complicating childbirth; D62 Acute posthemorrhagic anemia; O14.94 Unspecified pre-eclampsia, complicating childbirth; O86.4 Pyrexia of unknown origin following delivery; O99.02 Anemia complicating childbirth; Z3A.39 39 weeks gestation of pregnancy; Z37.0 Single live birth; Z23 Encounter for immunization
CPT/HCPCS: 36415; 71045; 76819; 80053; 81001; 82565; 83615; 84450; 84460; 84550; 85014; 85018; 85025; 85027; 86850; 86900; 86901; 87040; 87076; 87086; 87186; 90707; G0378; A6250; C9250; J0690; J0696; J1580; J1885; J2405; J2590; J2765; J3010; J3475; J7120; J7121

== ENCOUNTER 2021-04-05 22:23 | Emergency (ER) | payer BC ==
[2021-04-06 01:23] LABS: Basophils % (Auto) 0.5 % (0.0-1.8); Eosinophils # (Auto) 0.1 K/mm3 (0.0-0.4); Eosinophils % (Auto) 1.2 % (0.0-4.3); Hemoglobin 14.1 gm/dl (10.1-14.3); Lymphocytes # (Auto) 2.9 K/mm3 (1.2-5.4); Lymphocytes % (Auto) 43.9 % (13.4-35.0); Mean Corpuscular HGB Conc 35 % (30-34); Mean Corpuscular Volume 95 fl (79-97); Monocytes # (Auto) 0.6 K/mm3 (0.0-0.8); Monocytes % (Auto) 8.9 % (0.0-7.3); Platelet Count 314 K/mm3 (140-440); Red Blood Count 4.34 M/mm3 (3.65-5.03); Red Cell Distribution Width 12.6 % (13.2-15.2)
--- NOTE | 2021-04-06 03:13 | Ultrasound Report ---
Pelvic ultrasound INDICATION: Heavy vaginal bleeding FINDINGS: The uterus measures 6 x 4 x 3 cm. Endometrial thickness is slightly increased at 12 mm. Nei ther ovary was well identified from overlying bowel gas. No significant free pelvic fluid identified. IMPRESSION: Mildly thickened endometrial complex of about 12 mm, as above. Signer Name: Javad Robbins MD Signed: 04/06/2021 3:09 AM Workstation Name: [id number]
--- NOTE | 2021-04-06 03:28 | Emergency Department Report ---
ED Female HPI - General Chief complaint: Vaginal Bleeding Stated complaint: VAGINAL BLEEDING,ABD PAIN, DIZZINESS Time Seen by Provider: 04/06/21 01:33 Source: patient Mode of arrival: Ambulatory Limitations: No Limitations - History of Present Illness Initial comments: Patient is a 21-year-old F [place] female who states she normally has 2 to 3- day menses that has been bleeding for approximately 12 days. Patient states that she has some crampy lower abdominal discomfort. States she has some mild lightheadedness when she stands. She has not seen a drug safety assistant was bleeding. She has not had bleeding like this in the past. She denies dysuria vaginal discharge or any other symptoms at this time. Severity scale (0 -10): 3 Quality: cramping - Related Data Previous Rx's Medication Instructions Recorded Last Taken Type Acetaminophen 500 mg PO Q6H PRN #30 tablet 07/25/18 Unknown Rx Amoxicillin/K Clav Tab [Augmentin 1 tab PO Q12HR #20 tab 07/25/18 Unknown Rx 875 mg] Ferrous Sulfate [Feosol 325 MG tab] 325 mg PO BID #60 tablet 12/24/18 Unknown Rx HYDROcodone/APAP 5-325 [[place] 1 each PO Q6HR PRN #30 tablet 12/24/18 Unknown Rx 5/325] Ibuprofen [Motrin] 800 mg PO Q8HR PRN #30 tablet 12/24/18 Unknown Rx Pnv No.95/Ferrous Fum/Folic AC 1 each PO DAILY #30 tablet 12/24/18 Unknown Rx [ Vitamin Tablet] Ferrous Sulfate [Iron] 325 mg PO BID #60 tablet 12/30/18 Unknown Rx Ibuprofen [Motrin] 800 mg PO Q8HR PRN #20 tablet 12/30/18 Unknown Rx amLODIPine [Norvasc] 10 mg PO DAILY #30 tab 12/30/18 Unknown Rx labetaloL [Labetalol 200mg TAB] 200 mg PO BID #60 tablet 12/30/18 Unknown Rx oxyCODONE /ACETAMINOPHEN [Percocet 1 tab PO Q4HR #14 tab 12/30/18 Unknown Rx 5/325] Guaifenesin/Pseudoephedrne HCl 1 each PO BID #24 tab.er.12h 10/10/19 Unknown Rx [Mucinex D ER 1,200-120 mg Tab] Ibuprofen [Motrin 800 MG tab] 800 mg PO Q8HR PRN #30 tablet 10/10/19 Unknown Rx Ibuprofen [Motrin 800 MG tab] 800 mg PO Q8HR PRN #10 tablet 04/06/21 Unknown Rx medroxyPROGESTERone ACETATE 10 mg PO DAILY #7 tablet 04/06/21 Unknown Rx [Provera] Allergies Allergy/AdvReac Type Severity Reaction Status Date / Time coconut Allergy Angioedema Verified 09/08/17 11:41 nickel Allergy Rash Verified 09/08/17 11:41 ED Review of Systems ROS: Stated complaint: VAGINAL BLEEDING,ABD PAIN, DIZZINESS Other details as noted in HPI Comment: All other systems reviewed and negative ED Past Medical Hx - Past Medical History Previous Medical History?: No Hx Hypertension: No Hx Congestive Heart Failure: No Hx Diabetes: No Hx Deep Vein Thrombosis: No Hx Renal Disease: No Hx Sickle Cell Disease: No Hx Seizures: No Hx Asthma: No Hx COPD: No Hx HIV: No - Surgical History Past Surgical History?: Yes Additional Surgical History: wrist surgery, CSECTION DECEMBER 2018 - Social History Smoking Status: Never Smoker Substance Use Type: None - Medications Home Medications: Home Medications Medication Instructions Recorded Confirmed Last Taken Type Acetaminophen 500 mg PO Q6H PRN #30 tablet 07/25/18 12/25/18 Unknown Rx Amoxicillin/K Clav Tab [Augmentin 1 tab PO Q12HR #20 tab 07/25/18 12/25/18 Unknown Rx 875 mg] Ferrous Sulfate [Feosol 325 MG tab] 325 mg PO BID #60 tablet 12/24/18 Unknown Rx HYDROcodone/APAP 5-325 [[place] 1 each PO Q6HR PRN #30 tablet 12/24/18 Unknown Rx 5/325] Ibuprofen [Motrin] 800 mg PO Q8HR PRN #30 tablet 12/24/18 Unknown Rx Pnv No.95/Ferrous Fum/Folic AC 1 each PO DAILY #30 tablet 12/24/18 Unknown Rx [ Vitamin Tablet] Ferrous Sulfate [Iron] 325 mg PO BID #60 tablet 12/30/18 Unknown Rx Ibuprofen [Motrin] 800 mg PO Q8HR PRN #20 tablet 12/30/18 Unknown Rx amLODIPine [Norvasc] 10 mg PO DAILY #30 tab 12/30/18 Unknown Rx labetaloL [Labetalol 200mg TAB] 200 mg PO BID #60 tablet 12/30/18 Unknown Rx oxyCODONE /ACETAMINOPHEN [Percocet 1 tab PO Q4HR #14 tab 12/30/18 Unknown Rx 5/325] Guaifenesin/Pseudoephedrne HCl 1 each PO BID #24 tab.er.12h 10/10/19 Unknown Rx [Mucinex D ER 1,200-120 mg Tab] Ibuprofen [Motrin 800 MG tab] 800 mg PO Q8HR PRN #30 tablet 10/10/19 Unknown Rx Ibuprofen [Motrin 800 MG tab] 800 mg PO Q8HR PRN #10 tablet 04/06/21 Unknown Rx medroxyPROGESTERone ACETATE 10 mg PO DAILY #7 tablet 04/06/21 Unknown Rx [Provera] ED Physical Exam - General Limitations: No Limitations General appearance: alert, in no apparent distress - Head Head exam: Present: atraumatic, normocephalic - Eye Eye exam: Present: normal appearance - ENT ENT exam: Present: mucous membranes moist - Neck Neck exam: Present: normal inspection - Respiratory Respiratory exam: Present: normal lung sounds bilaterally. Absent: respiratory distress, wheezes, rales, rhonchi - Cardiovascular Cardiovascular Exam: Present: regular rate, normal rhythm, normal heart sounds. Absent: systolic murmur, diastolic murmur, rubs, gallop - GI/Abdominal GI/Abdominal exam: Present: soft, tenderness (mild suprapubic and RLQ), normal bowel sounds. Absent: distended, guarding, rebound, rigid - Extremities Exam Extremities exam: Present: normal inspection - Back Exam Back exam: Present: normal inspection - Neurological Exam Neurological exam: Present: alert, oriented X3 - Psychiatric Psychiatric exam: Present: normal affect, normal mood - Skin Skin exam: Present: warm, dry, intact, normal color. Absent: rash ED Course Vital Signs 04/06/21 00:14 Temperature 98.5 F Pulse Rate 76 Respiratory 18 Rate Blood Pressure 113/45 O2 Sat by Pulse 100 Oximetry ED Medical Decision Making - Lab Data Result diagrams: 04/06/21 00:42 Lab Results 04/06/21 04/06/21 04/06/21 Range/Units 00:42 00:42 00:42 WBC 6.6 (4.5-11.0) K/mm3 RBC 4.34 (3.65-5.03) M/mm3 Hgb 14.1 (10.1-14.3) gm/dl Hct 41.0 (30.3-42.9) % MCV 95 (79-97) fl MCH 33 H (28-32) pg MCHC 35 H (30-34) % RDW 12.6 L (13.2-15.2) % Plt Count 314 (140-440) K/mm3 Lymph % (Auto) 43.9 H (13.4-35.0) % [place] % (Auto) 8.9 H (0.0-7.3) % Eos % (Auto) 1.2 (0.0-4.3) % Baso % (Auto) 0.5 (0.0-1.8) % Lymph # (Auto) 2.9 (1.2-5.4) K/mm3 [place] # (Auto) 0.6 (0.0-0.8) K/mm3 Eos # (Auto) 0.1 (0.0-0.4) K/mm3 Baso # (Auto) 0.0 (0.0-0.1) K/mm3 Seg Neutrophils % 45.5 (40.0-70.0) % Seg Neutrophils # 3.0 (1.8-7.7) K/mm3 HCG, Qual Negative (Negative) Blood Type B POSITIVE - Radiology Data [facility] [address] [place] [address] Ultrasound Report Signed Patient: RACHEL VILLEGAS MR#: [id number] : 2000 Acct:[id number] Age/Sex: 21 / F ADM Date: 04/05/21 Loc: ED Attending Dr: Ordering Physician: KARO ALBRECHT MD Date of Service: 04/06/21 Procedure(s): US pelvic complete Accession Number(s): [id number] cc: KARO ALBRECHT MD Pelvic ultrasound INDICATION: Heavy vaginal bleeding FINDINGS: The uterus measures 6 x 4 x 3 cm. Endometrial thickness is slightly increased at 12 mm. Neither ovary was well identified from overlying bowel gas. No significant free pelvic fluid identified. IMPRESSION: Mildly thickened endometrial complex of about 12 mm, as above. Signer Name: Javad Robbins MD Signed: 04/06/2021 3:09 AM Workstation Name: [id number] - Medical Decision Making No fibroids seen on ultrasound. Patient be started on Provera and given NURSING PROGRAM DIRECTOR for follow-up Critical care attestation.: If time is entered above; I have spent that time in minutes in the direct care of this critically ill patient, excluding procedure time. ED Disposition Clinical Impression: DUB (dysfunctional uterine bleeding) Disposition: - TO HOME OR SELFCARE Is pt being admited?: No Does the pt Need Aspirin: No Condition: Stable Instructions: Abnormal Uterine Bleeding Referrals: ADRIANNA VEE MD [Staff Physician] - 3-5 Days Time of Disposition: 03:27
[2021-04-06 05:22] VITALS: BP 122/71
== END 2021-04-06 04:55 | disposition home or self-care (01) ==
LOC: ED 22:23
DX: N93.8 Other specified abnormal uterine and vaginal bleeding (principal); Z79.899 Other long term (current) drug therapy; Z98.890 Other specified postprocedural states; Z88.8 Allergy status to other drugs, medicaments and biological substances; Z91.018 Allergy to other foods
CPT/HCPCS: 36415; 76856; 84703; 85025; 86900; 86901

== ENCOUNTER 2021-09-18 22:11 | Emergency (ER) | payer BC ==
[2021-09-18 22:18] VITALS: BP 137/93
--- NOTE | 2021-09-18 22:59 | Emergency Department Report ---
ED General Adult HPI - General Chief complaint: Earache Stated complaint: DIZZINESS Time Seen by Provider: 09/18/21 22:55 Source: patient Mode of arrival: Ambulatory Limitations: No Limitations - History of Present Illness Initial comments: 21-year-old [place] female with past medical history of anxiety associated with occasional palpitations presents emerged department complaining of a 2 to 3-week history of abnormal sensations in the patches to her tongue associated with fatigue and weakness and ear pressure and pain of unknown etiology. She also reports having had no. For 148 days he did take a test and it was negative she is due to follow-up with her primary care provider tomorrow morning at 10:15 PM but wanted to know what was going on tonight so came to emergency department. She is reports having some early fatigue but denies any hemoptysis in him hematemesis hematochezia, no vaginal bleeding, no vaginal discharge, no fever, chills, sweats. - Related Data Previous Rx's Medication Instructions Recorded Last Taken Type Acetaminophen 500 mg PO Q6H PRN #30 tablet 07/25/18 Unknown Rx Amoxicillin/K Clav Tab [Augmentin 1 tab PO Q12HR #20 tab 07/25/18 Unknown Rx 875 mg] Ferrous Sulfate [Feosol 325 MG tab] 325 mg PO BID #60 tablet 12/24/18 Unknown Rx HYDROcodone/APAP 5-325 [[place] 1 each PO Q6HR PRN #30 tablet 12/24/18 Unknown Rx 5/325] Ibuprofen [Motrin] 800 mg PO Q8HR PRN #30 tablet 12/24/18 Unknown Rx Pnv No.95/Ferrous Fum/Folic AC 1 each PO DAILY #30 tablet 12/24/18 Unknown Rx [ Vitamin Tablet] Ferrous Sulfate [Iron] 325 mg PO BID #60 tablet 12/30/18 Unknown Rx Ibuprofen [Motrin] 800 mg PO Q8HR PRN #20 tablet 12/30/18 Unknown Rx amLODIPine [Norvasc] 10 mg PO DAILY #30 tab 12/30/18 Unknown Rx labetaloL [Labetalol 200mg TAB] 200 mg PO BID #60 tablet 12/30/18 Unknown Rx oxyCODONE /ACETAMINOPHEN [Percocet 1 tab PO Q4HR #14 tab 12/30/18 Unknown Rx 5/325] Guaifenesin/Pseudoephedrne HCl 1 each PO BID #24 tab.er.12h 10/10/19 Unknown Rx [Mucinex D ER 1,200-120 mg Tab] Ibuprofen [Motrin 800 MG tab] 800 mg PO Q8HR PRN #30 tablet 10/10/19 Unknown Rx Ibuprofen [Motrin 800 MG tab] 800 mg PO Q8HR PRN #10 tablet 04/06/21 Unknown Rx medroxyPROGESTERone ACETATE 10 mg PO DAILY #7 tablet 04/06/21 Unknown Rx [Provera] Allergies Allergy/AdvReac Type Severity Reaction Status Date / Time coconut Allergy Angioedema Verified 09/08/17 11:41 nickel Allergy Rash Verified 09/08/17 11:41 ED Review of Systems ROS: Stated complaint: DIZZINESS Other details as noted in HPI Comment: All other systems reviewed and negative ED Past Medical Hx - Past Medical History Previous Medical History?: No Hx Hypertension: No Hx Congestive Heart Failure: No Hx Diabetes: No Hx Deep Vein Thrombosis: No Hx Renal Disease: No Hx Sickle Cell Disease: No Hx Seizures: No Hx Asthma: No Hx COPD: No Hx HIV: No - Surgical History Past Surgical History?: Yes Additional Surgical History: wrist surgery, CSECTION DECEMBER 2018 - Social History Smoking Status: Never Smoker Substance Use Type: None - Medications Home Medications: Home Medications Medication Instructions Recorded Confirmed Last Taken Type Acetaminophen 500 mg PO Q6H PRN #30 tablet 07/25/18 12/25/18 Unknown Rx Amoxicillin/K Clav Tab [Augmentin 1 tab PO Q12HR #20 tab 07/25/18 12/25/18 Unknown Rx 875 mg] Ferrous Sulfate [Feosol 325 MG tab] 325 mg PO BID #60 tablet 12/24/18 Unknown Rx HYDROcodone/APAP 5-325 [[place] 1 each PO Q6HR PRN #30 tablet 12/24/18 Unknown Rx 5/325] Ibuprofen [Motrin] 800 mg PO Q8HR PRN #30 tablet 12/24/18 Unknown Rx Pnv No.95/Ferrous Fum/Folic AC 1 each PO DAILY #30 tablet 12/24/18 Unknown Rx [ Vitamin Tablet] Ferrous Sulfate [Iron] 325 mg PO BID #60 tablet 12/30/18 Unknown Rx Ibuprofen [Motrin] 800 mg PO Q8HR PRN #20 tablet 12/30/18 Unknown Rx amLODIPine [Norvasc] 10 mg PO DAILY #30 tab 12/30/18 Unknown Rx labetaloL [Labetalol 200mg TAB] 200 mg PO BID #60 tablet 12/30/18 Unknown Rx oxyCODONE /ACETAMINOPHEN [Percocet 1 tab PO Q4HR #14 tab 12/30/18 Unknown Rx 5/325] Guaifenesin/Pseudoephedrne HCl 1 each PO BID #24 tab.er.12h 10/10/19 Unknown Rx [Mucinex D ER 1,200-120 mg Tab] Ibuprofen [Motrin 800 MG tab] 800 mg PO Q8HR PRN #30 tablet 10/10/19 Unknown Rx Ibuprofen [Motrin 800 MG tab] 800 mg PO Q8HR PRN #10 tablet 04/06/21 Unknown Rx medroxyPROGESTERone ACETATE 10 mg PO DAILY #7 tablet 04/06/21 Unknown Rx [Provera] ED Physical Exam - General Limitations: No Limitations General appearance: alert, in no apparent distress - Head Head exam: Present: atraumatic, normocephalic - Eye Eye exam: Present: normal appearance - ENT ENT exam: Present: mucous membranes moist - Neck Neck exam: Present: normal inspection - Respiratory Respiratory exam: Present: normal lung sounds bilaterally. Absent: respiratory distress - Cardiovascular Cardiovascular Exam: Present: regular rate, normal rhythm. Absent: systolic murmur, diastolic murmur, rubs, gallop - GI/Abdominal GI/Abdominal exam: Present: soft, normal bowel sounds - Extremities Exam Extremities exam: Present: normal inspection - Back Exam Back exam: Present: normal inspection - Neurological Exam Neurological exam: Present: alert, oriented X3 - Psychiatric Psychiatric exam: Present: normal affect, normal mood - Skin Skin exam: Present: warm, dry, intact, normal color. Absent: rash ED Course Vital Signs 09/18/21 22:13 Temperature 98.0 F Pulse Rate 96 H Respiratory 18 Rate Blood Pressure 137/93 O2 Sat by Pulse 99 Oximetry ED Medical Decision Making - Lab Data Result diagrams: 09/18/21 23:03 Lab Results 09/18/21 09/18/21 Range/Units 23:03 23:03 WBC 5.7 (4.5-11.0) K/mm3 RBC 4.31 (3.65-5.03) M/mm3 Hgb 13.3 (10.1-14.3) gm/dl Hct 40.9 (30.3-42.9) % MCV 95 (79-97) fl MCH 31 (28-32) pg MCHC 33 (30-34) % RDW 12.5 L (13.2-15.2) % Plt Count 296 (140-440) K/mm3 HCG, Qual Negative (Negative) - Medical Decision Making This 18-year-old patient presents emerged department today complaining of a amenorrhea 450+ days and a test was obtained but was found to be negative. She was hemodynamically stable throughout her entire visit and no emergent medical conditions were discovered. No intervention was required labs were obtained also normal she was deemed safe for follow-up with her primary care provider her dual diagnosis includes thrush, anemia, thyroid disorder,, dehydration, malignancy, hyperplasia, stomatitis, vitamin deficiency among several Critical care attestation.: If time is entered above; I have spent that time in minutes in the direct care of this critically ill patient, excluding procedure time. ED Disposition Clinical Impression: Otalgia, Tongue pain Disposition: HOME / SELF CARE / HOMELESS Is pt being admited?: No Does the pt Need Aspirin: No Condition: Stable Additional Instructions: Seen evaluate emergency department today for ear pain tongue pain and amenorrhea. test was negative and no obvious deficits found on l aboratory data. Nonetheless no emergent conditions were discovered during your visit and you are safe to follow-up with your primary care provider for further evaluation and work-up of your current medical problem list Referrals: BO LOVE [Other] - 3-5 Days
[2021-09-18 23:42] LABS: Hematocrit 40.9 % (30.3-42.9); Hemoglobin 13.3 gm/dl (10.1-14.3); Mean Corpuscular HGB Conc 33 % (30-34); Mean Corpuscular Volume 95 fl (79-97); Platelet Count 296 K/mm3 (140-440); Red Blood Count 4.31 M/mm3 (3.65-5.03); Red Cell Distribution Width 12.5 % (13.2-15.2)
== END 2021-09-19 01:18 | disposition home or self-care (01) ==
LOC: ED 22:11
DX: H92.01 Otalgia, right ear (principal); K13.0 Diseases of lips; R00.2 Palpitations; Z98.890 Other specified postprocedural states; Z91.09 Other allergy status, other than to drugs and biological substances; Z91.018 Allergy to other foods
CPT/HCPCS: 36415; 84703; 85027; 99283

== ENCOUNTER 2021-10-26 05:15 | Emergency (ER) | payer BC ==
[2021-10-26 06:27] VITALS: BP 133/84
== END 2021-10-26 06:20 | disposition left against medical advice (07) ==
LOC: ED 05:15
DX: O26.899 Other specified pregnancy related conditions, unspecified trimester (principal); R55 Syncope and collapse; Z53.21 Procedure and treatment not carried out due to patient leaving prior to being seen by health care provider

== ENCOUNTER 2021-11-04 05:47 | Emergency (ER) | payer BC | END 2021-11-06 04:31 | LOC: ED 05:47 | DX: O02.1 Missed abortion (principal); Z53.21 Procedure and treatment not carried out due to patient leaving prior to being seen by health care provider ==

== ENCOUNTER 2022-04-06 19:08 | Outpatient (CLI) | payer BC, OTHER ==
[2022-04-06 20:15] LABS: Hematocrit 35.2 % (30.3-42.9); Mean Corpuscular HGB Conc 34 % (30-34); Mean Corpuscular Volume 98 fl (79-97); Platelet Count 263 K/mm3 (140-440); Red Cell Distribution Width 12.6 % (13.2-15.2)
[2022-04-06] MEDS ORDERED: LACTATED RINGERS 500 ML IV ONE (20:30)
[2022-04-06 20:39] LABS: Alanine Aminotransferase 15 units/L (7-56); Uric Acid 1.5 mg/dL (3.5-7.6)
[2022-04-06 20:51] VITALS: BP 103/58
[2022-04-06] MEDS ORDERED: FAMOTIDINE 20 MG/2 ML INJ IV ONE (20:56)
== END 2022-04-06 21:19 | disposition home or self-care (01) ==
LOC: TRG 19:08 → LD 19:10 → TRG 21:19
PROVIDERS: ATTEND Obstetrics & Gynecology
DX: O26.892 Other specified pregnancy related conditions, second trimester (principal); M54.9 Dorsalgia, unspecified; R42 Dizziness and giddiness; M79.89 Other specified soft tissue disorders; O99.612 Diseases of the digestive system complicating pregnancy, second trimester; K21.9 Gastro-esophageal reflux disease without esophagitis; O13.2 Gestational [pregnancy-induced] hypertension without significant proteinuria, second trimester; Z3A.26 26 weeks gestation of pregnancy
CPT/HCPCS: 36415; 59025; 82565; 83615; 84450; 84460; 84550; 85027; 96361; 96374; J3490; J7120; 96360

== ENCOUNTER 2022-05-03 04:17 | Outpatient (CLI) | payer BC, OTHER ==
[2022-05-03 05:30] VITALS: BP 125/56
[2022-05-03] MEDS ORDERED: LACTATED RINGERS 500 ML IV ONE (05:31)
--- NOTE | 2022-05-03 05:40 | Event Note ---
Date: 05/03/22 Pt presents c/o right chest pain that radiates to her back, head ache when trying to lie down in triage, near syncopy while at home, seeing spots. Pt bp is normal.While not in her intial h&P in the office she states today that she had pre E and had to have an "emergency c/s" but notes state c/s was due to being breech. Will obtain EKG, labs, RUQ sonogram. Pt was stable and in NAD when evaluated by provider in triage. RN made aware of orders.
[2022-05-03 06:55] LABS: Basophils % (Auto) 0.2 % (0.0-1.8); Eosinophils % (Auto) 0.5 % (0.0-4.3); Hematocrit 34.2 % (30.3-42.9); Lymphocytes # (Auto) 1.8 K/mm3 (1.2-5.4); Lymphocytes % (Auto) 21.2 % (13.4-35.0); Mean Corpuscular HGB Conc 35 % (30-34); Mean Corpuscular Volume 97 fl (79-97); Monocytes # (Auto) 0.7 K/mm3 (0.0-0.8); Monocytes % (Auto) 8.4 % (0.0-7.3); Platelet Count 243 K/mm3 (140-440); Red Blood Count 3.52 M/mm3 (3.65-5.03); Red Cell Distribution Width 12.8 % (13.2-15.2)
[2022-05-03 07:15] LABS: Alanine Aminotransferase 25 units/L (7-56); Albumin 3.1 g/dL (3.9-5); Blood Urea Nitrogen 8 mg/dL (7-17); Calcium 8.5 mg/dL (8.4-10.2); Hemolysis Index 10
[2022-05-03 07:18] LABS: BUN/Creatinine Ratio 20
--- NOTE | 2022-05-05 09:59 | Electrocardiograph Report ---
[facility] Test Date: 2022-05-03 Test Time: 06:39:36 Pat Name: RACHEL VILLEGAS Department: Room: Gender: F Legal Records Clerk: KARMEN : 2000 Requested By: LINH RAY Order Number: [id number] Reading MD: Serge Borja Measurements Intervals [place] Rate: 96 P: 37 OR: 146 QRS: 20 QRSD: 82 T: -8 QT: 351 QTc: 446 Interpretive Statements Sinus rhythm No previous ECG available for comparison Electronically Signed On 05-05-2022 9:59:04 EDT by Serge Borja
== END 2022-05-03 07:35 | disposition home or self-care (01) ==
LOC: TRG 04:17 → APU 04:17 → TRG 07:35
PROVIDERS: ATTEND Obstetrics & Gynecology
DX: O26.853 Spotting complicating pregnancy, third trimester (principal); O26.893 Other specified pregnancy related conditions, third trimester; R07.9 Chest pain, unspecified; M54.50 Low back pain, unspecified; R55 Syncope and collapse; R42 Dizziness and giddiness; Z3A.30 30 weeks gestation of pregnancy
CPT/HCPCS: 36415; 80053; 85025; 93005

== ENCOUNTER 2022-05-21 00:48 | Outpatient (CLI) | payer BC, OTHER ==
[2022-05-21] MEDS ORDERED: LACTATED RINGERS 1,000 ML IV ONE (01:33)
[2022-05-21 01:56] LABS: Hematocrit 36.7 % (30.3-42.9); Hemoglobin 12.6 gm/dl (10.1-14.3); Mean Corpuscular HGB Conc 34 % (30-34); Mean Corpuscular Volume 98 fl (79-97); Platelet Count 243 K/mm3 (140-440); Red Blood Count 3.76 M/mm3 (3.65-5.03)
[2022-05-21 02:05] LABS: Creatinine,Urine 190.5 mg/dL (0.1-20.0); Protein/Creatinine Ratio,Urine 0.18
[2022-05-21 02:06] LABS: Bacteria,Urine 2+ /HPF (Negative); Mucus,Urine FEW /HPF
[2022-05-21 02:08] LABS: Bilirubin,Urine Negative (Negative); Color,Urine Yellow (Yellow)
[2022-05-21 02:09] LABS: Blood,Urine Negative (Negative); Urobilinogen,Urine < 2.0 mg/dL (<2.0)
[2022-05-21 02:17] LABS: Blood Urea Nitrogen 7 mg/dL (7-17); Calcium 9.2 mg/dL (8.4-10.2); Hemolysis Index 35
[2022-05-21 02:36] LABS: BUN/Creatinine Ratio 18
[2022-05-21] MEDS ORDERED: ONDANSETRON 4 MG/2 ML INJ IV ONE (02:54)
[2022-05-21 03:08] VITALS: BP 126/81
--- NOTE | 2022-05-21 03:27 | Event Note ---
Date: 05/21/22 Pt is a @ 32.5 wks who presented to triage with main complaints of upper abdominal pain, n/v, and chest pain. States these symptoms have been going on for the last few weeks. She presented to triage a few weeks ago and all testing resulted as normal. Testing in triage today also resulted as normal. She had an EKG that was WNL. VSS. Category 1 monitor tracing throughout triage stay with no contractions noted. Pt was given some IV fluids and Zofran with some relief. An u/s was ordered that showed she had some gallstones. We discussed bland diet such as apple sauce, dry toast, rice, and staying away from greasy and fatty foods. We also discussed the need for a GI consult, which can be completed as an outpatient. She was provided with the number to [facility] for treatment, evaluation, and follow up. She is aware that this consult will be placed in her office chart. Pt denies vaginal bleeding, LOF, ctxs. She is to keep her scheduled appointment in the office. She is aware of when to come to triage for evaluation and when to call the transportation consultant provider. Pt discharged from unit in good condition and ambulatory. Will call patient on 05/23 to follow up.
[2022-05-21 03:48] LABS: Alanine Aminotransferase 20 units/L (7-56); Uric Acid 1.5 mg/dL (3.5-7.6)
--- NOTE | 2022-05-21 03:48 | Ultrasound Report ---
ULTRASOUND OBSTETRIC LIMITED INDICATION / CLINICAL INFORMATION: r/o abruption. Clinical Gestational Age (GA) in weeks, days: 32 weeks 5 days TECHNIQUE: Transabdominal. COMPARISON: None available. FINDINGS: Single live intrauterine in cephalic presentation with heart rate measuring 146 bpm. The anterior placenta is free of the os without placental lifting or separation. No retroplacental he matoma. IMPRESSION: Single live intrauterine . No significant abnormality. Signer Name: Nabil Lee MD Signed: 05/21/2022 3:44 AM Workstation Name: [id number]
--- NOTE | 2022-05-21 03:49 | Ultrasound Report ---
US abdomen limited INDICATION / CLINICAL INFORMATION: look at gallbladder, liver. COMPARISON: 04/06/2021. FINDINGS: PANCREAS: No significant abnormality. ABDOMINAL AORTA: No significant abnormality. IVC: No significant abnormality. LIVER: No significant abnormality. PORTAL VEIN: Normal hepatopedal blood flow in the main portal vein. GALLBLADDER: There is cholelithiasis. No gallbladder wall thickening or pericholecystic fluid. BILE DUCTS: Common bile duct measures 4 mm. No significant abnormality. FREE FLUID: None. ADDITIONAL FINDINGS: None. IMPRESSION: 1. Cholelithiasis. No evidence of cholecystitis. 2. No other sonographic abnormality. Signer Name: Nabil Lee MD Signed: 05/21/2022 3:45 AM Workstation Name: [id number]
--- NOTE | 2022-05-23 08:46 | Electrocardiograph Report ---
[facility] Test Date: 2022-05-21 Test Time: 04:03:36 Pat Name: RACHEL VILLEGAS Department: Room: Gender: F Clipping Marker: [id number] : 2000 Requested By: PAPI CARRION Order Number: [id number] Reading MD: Efra Crandall Measurements Intervals [place] Rate: 85 P: 35 VT: 149 QRS: 13 QRSD: 79 T: 5 QT: 347 QTc: 413 Interpretive Statements Sinus rhythm nonspecific st-t Compared to ECG 05/03/2022 06:39:36 No significant changes Electronically Signed On 05-23-2022 8:46:10 EDT by Efra Crandall
== END 2022-05-21 04:15 | disposition home or self-care (01) ==
LOC: TRG 00:48 → APU 00:49 → TRG 04:15
PROVIDERS: ATTEND Obstetrics & Gynecology
DX: O99.613 Diseases of the digestive system complicating pregnancy, third trimester (principal); K80.20 Calculus of gallbladder without cholecystitis without obstruction; O21.2 Late vomiting of pregnancy; O13.3 Gestational [pregnancy-induced] hypertension without significant proteinuria, third trimester; Z3A.32 32 weeks gestation of pregnancy
CPT/HCPCS: 36415; 59025; 76705; 76815; 80048; 81001; 82565; 82570; 83615; 84156; 84450; 84460; 84550; 85027; 93005; 96360; J7120

== ENCOUNTER 2022-05-29 21:04 | Outpatient (CLI) | payer BC, OTHER ==
[2022-05-29 21:34] VITALS: BP 125/62
[2022-05-29] MEDS ORDERED: LACTATED RINGERS 1,000 ML ONE (22:31)
--- NOTE | 2022-05-29 23:54 | Ultrasound Report ---
Limited OB ultrasound INDICATION: SHAY FINDINGS: Single live intrauterine in cephalic position. SHAY measures 11.6 cm. Placenta is anterior. heart rate 1 46 bpm IMPRESSION: SHAY measures 11.6 cm Signer Name: Dale Cobos MD Signed: 05/29/2022 11:49 PM Workstation Name: [id number]
--- NOTE | 2022-05-30 00:11 | Event Note ---
Date: 05/30/22 Pt here with c/o of leaking fluids from vagina. Had concerns about Fundal height measurements in office and was afraid she may be more than 33 weeks and worried she will develop pre eclampsia because she had pre elcampsia around 35 weeks last . Reports [facility] told her they don't have any available appts until August. SHAY and ROM+ ordered. FH 35cm. Pre clampsia labs on 05/21 hospital visit. urine protein/creatinine ratio ordered. 500 cc bolus given for c/o of dizziness, n/v/d for 3 days. Will re-send [facility] consult as urgent. Discussed warning signs and when to call the office or report back to hospital. F/u in office in 1 week. D/c if all lab orders WNL and Category 1 EFM.
== END 2022-05-30 02:15 | disposition home or self-care (01) ==
LOC: TRG 21:04 → APU 21:07 → TRG 05-30 02:15
PROVIDERS: ATTEND Student in an Organized Health Care Education/Training Program
DX: O42.913 Preterm premature rupture of membranes, unspecified as to length of time between rupture and onset of labor, third trimester (principal); O26.893 Other specified pregnancy related conditions, third trimester; R42 Dizziness and giddiness; O21.2 Late vomiting of pregnancy; O13.3 Gestational [pregnancy-induced] hypertension without significant proteinuria, third trimester; Z3A.34 34 weeks gestation of pregnancy
CPT/HCPCS: 36415; 76815; 84112; 96360; J7120

== ENCOUNTER 2022-06-03 14:21 | Outpatient (CLI) | payer BC, OTHER ==
[2022-06-03 15:01] VITALS: BP 107/61
[2022-06-03] MEDS ORDERED: LACTATED RINGERS 1,000 ML IV ONE (15:22)
[2022-06-03] MEDS ORDERED: LACTATED RINGERS 1,000 ML ONE (15:27)
[2022-06-03 17:08] LABS: Bacteria,Urine 4+ /HPF (Negative); Mucus,Urine 1+ /HPF
[2022-06-03 17:24] LABS: Color,Urine Yellow (Yellow)
== END 2022-06-03 17:18 | disposition left against medical advice (07) ==
LOC: TRG 14:21 → APU 14:22 → TRG 17:18
PROVIDERS: ATTEND Obstetrics & Gynecology
DX: O26.893 Other specified pregnancy related conditions, third trimester (principal); R10.9 Unspecified abdominal pain; Z3A.34 34 weeks gestation of pregnancy
CPT/HCPCS: 81001; 87086

== ENCOUNTER 2022-06-12 04:53 | Outpatient (CLI) | payer BC, OTHER ==
[2022-06-12] MEDS ORDERED: LACTATED RINGERS 1,000 ML ONE (07:04)
[2022-06-12] MEDS ORDERED: LACTATED RINGERS 500 ML IV ONE (07:07)
[2022-06-12 07:14] LABS: Hematocrit 34.4 % (30.3-42.9); Hemoglobin 12.1 gm/dl (10.1-14.3); Mean Corpuscular HGB Conc 35 % (30-34); Mean Corpuscular Volume 96 fl (79-97); Platelet Count 218 K/mm3 (140-440); Red Blood Count 3.58 M/mm3 (3.65-5.03); Red Cell Distribution Width 13.2 % (13.2-15.2)
[2022-06-12 07:18] LABS: Color,Urine Colorless (Yellow)
[2022-06-12 07:19] LABS: RBC,Urine < 1.0 /HPF (0.0-6.0); WBC,Urine < 1.0 /HPF (0.0-6.0)
[2022-06-12 07:49] VITALS: BP 117/69
== END 2022-06-12 08:47 | disposition home or self-care (01) ==
LOC: TRG 04:53 → APU 04:56 → TRG 08:47
PROVIDERS: ATTEND Obstetrics & Gynecology
DX: O26.893 Other specified pregnancy related conditions, third trimester (principal); K92.1 Melena; M54.9 Dorsalgia, unspecified; M25.512 Pain in left shoulder; O16.3 Unspecified maternal hypertension, third trimester; Z3A.35 35 weeks gestation of pregnancy
CPT/HCPCS: 36415; 59025; 81001; 85027; J7120; 96360

== ENCOUNTER 2022-06-17 15:35 | Observation (INO) | payer BC, OTHER ==
[2022-06-17 18:03] LABS: Hematocrit 33.8 % (30.3-42.9); Hemoglobin 11.3 gm/dl (10.1-14.3); Mean Corpuscular HGB Conc 33 % (30-34); Mean Corpuscular Volume 97 fl (79-97); Platelet Count 215 K/mm3 (140-440); Red Blood Count 3.48 M/mm3 (3.65-5.03); Red Cell Distribution Width 12.8 % (13.2-15.2)
[2022-06-17 18:06] LABS: Bacteria,Urine 4+ /HPF (Negative); Hyaline Casts,Urine 1 /LPF; Mucus,Urine FEW /HPF
[2022-06-17 18:11] LABS: Color,Urine Straw (Yellow)
[2022-06-17 18:53] LABS: Alanine Aminotransferase 51 units/L (7-56); Blood Urea Nitrogen 7 mg/dL (7-17); Hemolysis Index 0
[2022-06-17] MEDS ORDERED: BICITRA ORAL LIQD 30ML PO ONE (18:55)
[2022-06-17] MEDS ORDERED: BICITRA ORAL LIQD 30ML ONE (18:57)
--- NOTE | 2022-06-17 18:57 | XRay Report ---
CHEST 1 VIEW INDICATION / CLINICAL INFORMATION: Shortness of breath.. COMPARISON: 12/28/2018 FINDINGS: SUPPORT DEVICES: None. HEART / MEDIASTINUM: No significant abnormality. LUNGS / PLEURA: No significant pulmonary or pleural abnormality. No pneumothorax. ADDITIONAL FINDINGS: No significant additional findings. IMPRESSION: 1. No acute findings. Signer Name: Armand Miller MD Signed: 06/17/2022 6:53 PM Workstation Name: [id number]
[2022-06-17 19:05] LABS: BUN/Creatinine Ratio 18
[2022-06-17] MEDS ORDERED: ACETAMINOPHEN 325 MG TAB PO PRN (20:38)
[2022-06-17] MEDS ORDERED: DOCUSATE SODIUM 100 MG CAP PO PRN (20:38)
[2022-06-17] MEDS ORDERED: diphenhydrAMINE 25 MG CAP PO PRN (20:38)
[2022-06-17] MEDS ORDERED: SIMETHICONE 80 MG CHEW TAB PO PRN (20:38)
[2022-06-17] MEDS ORDERED: MAGNESIUM HYDROXIDE (MOM) ORAL LIQD UDC PO PRN (20:38)
[2022-06-17] MEDS ORDERED: ALUM-MAG HYDROXIDE-SIMETHICONE 200-200-20MG/5ML ORAL LIQD 30 ML PO PRN (20:38)
[2022-06-17] MEDS ORDERED: ONDANSETRON 4 MG/2 ML INJ IV PRN (20:38)
--- NOTE | 2022-06-17 20:38 | History and Physical Report ---
<SHANELLE LEMUS LcPalak - Last Filed: 06/18/22 00:36> History of Present Illness Date of examination: 06/17/22 Date of admission: 06/17/2023 Chief complaint: I'm having chest pain and I'm short of breath. History of present illness: Pt is a @ 36.4 wks, who was admitted to observation d/t on going chest pain that radiates to her arm, shortness of breath, and HAs X 3 days. She was sent to triage for evaluation. She has been seen in triage during this on multiple occasions for many complaints. An EKG and labs were ordered. Her EKG showed probable left atrial enlargement. The decision was then made for observation admission. This has also been complicated by abdominal pain d/t gallstones. She has yet to make an appointment with GI even though a referral was placed and patient was provided with the number to call and make an appointment. Also of note patient states: " My mom told me not to take anything kind of medication or IV fluids that will stop labor. So I do not want any IV fluids or medication that will stop my contractions". EDC Confirmation: 07/11/2022 Gestational Age: 36.4 weeks on admission Past History : 4 Term Births: 1 Premature Births: 0 Living Children: 1 Para: 1 Mult. Births: 0 Prev : 1 Prev. attempt? 0 Aborta: 2 Elect. Ab: 0 Spont. Ab: 2 Ectopics: 0 # 1 Delivery date: 12/2018 Weeks Gestation: 38 labor: no Delivery type: Hours of labor: 19 Anesthesia type: epidural Sex: Female weight: 7-15 Comments: Breech # 2 Delivery date: 08/2019 Weeks Gestation: ? Delivery type: SAB # 3 Delivery date: 02/2021 Weeks Gestation: ? Delivery type: SAB Past Medical History: Reviewed and updated today: Anxiety Depression Positive MITRA panel - f/u with Rheumatology Past Surgical History: Reviewed and updated today: Broken left wrist (2011) Family History Summary: Father - Has Family History of Alcoholism - Entered On: 11/07/2021 General Comments - FH: Mother - bipolar, alcoholism, thyriod disease Social History: Patient is Smoking History: Patient has never smoked. 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 Infection History Hx of STD: none HIV Risk Eval: no Hepatitis B Risk Eval: low risk Personal hx. of genital herpes: no Rash, Viral, or Febrile illness since last LMP? no Varicella/Chicken Pox Status: Previous Disease TB Risk: no Genetic History Congenital Heart Defect: Mom: no Dad: no Marco A Disease: Mom: no Dad: no Thalassemia Mom: no Dad: no Neural Tube Defect Mom: no Dad: no Down's Syndrome Mom: no Dad: no Scott-Sachs Mom: no Dad: no Sickle Cell Disease/Trait Mom: no Dad: unknown Hemophilia Mom: no Dad: no Muscular Dystrophy Mom: no Dad: no Cystic Fibrosis Mom: no Dad: no [place] Chorea Mom: no Dad: no Mental Retardation Mom: no Dad: no Fragile X Mom: no Dad: no Other Genetic/Chromosomal Disorder Mom: no Dad: no Child w/other defect Mom: no Dad: no Comments/Counseling: Both parents may be SCT carriers. Pt's daughter has trait per pt. Pt unsure if she has SCT Enviromental Exposures Enviromental Exposures Reviewed Xray Exposure: no Medication, drug, or alcohol use since LMP: no Chemical/Other Exposure: no Exposure to Cat Liter: yes Hx of Parvovirus (Fifth Disease): no Occupational Exposure to Children: none Current Allergies (reviewed today): * NICKEL (Critical) * COCONUT (Critical) Past History Past Medical History: other (Anxiety, depression, positive MITRA panel) Past Surgical History: section, other (Wrist surgery. ) Family/Genetic History: other (Thyroid disorder, B-polar, alcoholism) Social history: no significant social history - Obstetrical History Expected Date of Delivery: 07/11/22 Actual Gestation: 36 Week(s) 5 Day(s) : 4 Medications and Allergies Allergies Allergy/AdvReac Type Severity Reaction Status Date / Time coconut Allergy Angioedema Verified 09/08/17 11:41 nickel Allergy Rash Verified 09/08/17 11:41 Home Medications Medication Instructions Recorded Confirmed Last Taken Type Acetaminophen 500 mg PO Q6H PRN #30 tablet 07/25/18 12/25/18 Unknown Rx Amoxicillin/K Clav Tab [Augmentin 1 tab PO Q12HR #20 tab 07/25/18 12/25/18 Unknown Rx 875 mg] Ferrous Sulfate [Feosol 325 MG tab] 325 mg PO BID #60 tablet 12/24/18 Unknown Rx HYDROcodone/APAP 5-325 [[place] 1 each PO Q6HR PRN #30 tablet 12/24/18 Unknown Rx 5/325] Ibuprofen [Motrin] 800 mg PO Q8HR PRN #30 tablet 12/24/18 Unknown Rx Pnv No.95/Ferrous Fum/Folic AC 1 each PO DAILY #30 tablet 12/24/18 Unknown Rx [ Vitamin Tablet] Ferrous Sulfate [Iron] 325 mg PO BID #60 tablet 12/30/18 Unknown Rx Ibuprofen [Motrin] 800 mg PO Q8HR PRN #20 tablet 12/30/18 Unknown Rx amLODIPine [Norvasc] 10 mg PO DAILY #30 tab 12/30/18 Unknown Rx labetaloL [Labetalol 200mg TAB] 200 mg PO BID #60 tablet 12/30/18 Unknown Rx oxyCODONE /ACETAMINOPHEN [Percocet 1 tab PO Q4HR #14 tab 12/30/18 Unknown Rx 5/325] Guaifenesin/Pseudoephedrne HCl 1 each PO BID #24 tab.er.12h 10/10/19 Unknown Rx [Mucinex D ER 1,200-120 mg Tab] Ibuprofen [Motrin 800 MG tab] 800 mg PO Q8HR PRN #30 tablet 10/10/19 Unknown Rx Ibuprofen [Motrin 800 MG tab] 800 mg PO Q8HR PRN #10 tablet 04/06/21 Unknown Rx medroxyPROGESTERone ACETATE 10 mg PO DAILY #7 tablet 04/06/21 Unknown Rx [Provera] Metoclopramide [Reglan] 10 mg PO TID #30 tab 05/21/22 Unknown Rx Ondansetron [Zofran ODT TAB] 8 mg PO Q12HR #20 tab.rapdis 05/21/22 Unknown Rx Promethazine [Phenergan] 25 mg PO Q6HR PRN #20 tab 05/21/22 Unknown Rx Review of Systems Cardiovascular: chest pain, shortness of breath Respiratory: shortness of breath Neurological: headaches - Vital Signs Vital signs: Vital Signs Pulse BP 97 H 127/71 06/17/22 16:32 06/17/22 16:32 Temp Pulse Resp BP Pulse Ox 98.4 F 106 H 20 127/71 96 06/17/22 16:35 06/17/22 20:35 06/17/22 16:35 06/17/22 16:35 06/17/22 20:35 Pt denies blurred vision, spots before her eyes, and upper abdominal pain. - Physical Exam Breasts: Positive: deferred Cardiovascular: Regular rate Lungs: Positive: Normal air movement Abdomen: Positive: normal appearance, soft Genitourinary (Female): Positive: normal external genitalia, normal perenium Vulva: both: normal Vagina: Positive: normal moisture Uterus: Positive: enlarged Extremities: Positive: normal - Obstetrical FHR: category 1 Uterine Contraction Monitor Mode: External Cervical Dilatation: 0 (posterior, medium) Cervical Effacement Percentage: 0 station: -3 Results Result Diagrams: 06/17/22 17:28 06/17/22 17:28 Abnormal lab results 06/17/22 06/17/22 Range/Units 17:28 17:28 RBC 3.48 L (3.65-5.03) M/mm3 RDW 12.8 L (13.2-15.2) % Carbon Dioxide 20 L (22-30) mmol/L Creatinine 0.4 L (0.6-1.2) mg/dL AST 47 H (5-40) units/L Alkaline Phosphatase 174 H (35-129) units/L Albumin 3.0 L (3.9-5) g/dL All other labs normal. GBS NEGATIVE HBsAg Screen Negative Negative *1 RPR Non Reactive Non Reactive *2 Rubella Antibodies, IgG 5.20 index Immune >0.99 *3 Non-immune <0.90 Equivocal 0.90 - 0.99 Immune >0.99 ABO Grouping B *4 Rh Factor Positive *5 Please note: Prior records for this patient's ABO / Rh type are not available for additional verification. Antibody Screen Negative Negative *6 WBC 6.8 x10E3/uL 3.4-10.8 *7 RBC 4.51 x10E6/uL 3.77-5.28 *8 Hemoglobin 13.9 g/dL 11.1-15.9 *9 Hematocrit 41.6 % 34.0-46.6 *10 MCV 92 fL 79-97 *11 MCH 30.8 pg 26.6-33.0 *12 MCHC 33.4 g/dL 31.5-35.7 *13 RDW 12.0 % 11.7-15.4 *14 Platelets 344 x10E3/uL 150-450 *15 Neutrophils 49 % Not Estab. *16 Lymphs 40 % Not Estab. *17 Monocytes 10 % Not Estab. *18 Eos 1 % Not Estab. *19 Basos 0 % Not Estab. *20 ! Immature Cells <No Reported Value> *21 Neutrophils (Absolute) 3.3 x10E3/uL 1.4-7.0 *22 Lymphs (Absolute) 2.7 x10E3/uL 0.7-3.1 *23 Monocytes(Absolute) 0.7 x10E3/uL 0.1-0.9 *24 Eos (Absolute) 0.1 x10E3/uL 0.0-0.4 *25 Baso (Absolute) 0.0 x10E3/uL 0.0-0.2 *26 ! Immature Granulocytes 0 % Not Estab. *27 ! Immature Grans (Abs) 0.0 x10E3/uL 0.0-0.1 *28 ! NRBC <No Reported Value> *29 Hematology Comments: <No Reported Value> *30 Tests: (2) HB Solu + Rflx Fra (632802) Hemoglobin (Hgb) Solubility Negative Negative *31 Tests: (3) HIV Ab/p24 Ag with Reflex (958297) HIV Ab/p24 Ag Screen Non Reactive Non Reactive *32 HIV Negative HIV-1/HIV-2 antibodies and HIV-1 p24 antigen were NOT detected. There is no laboratory evidence of HIV infection. Tests: (4) HCV Antibody reflex to RIGO (220600) HCV Ab <0.1 s/co ratio 0.0-0.9 *33 Tests: (5) Interpretation: ([id number]) ! Interpretation: SPRCS *34 Negative Not infected with HCV, unless recent infection is suspected or other evidence exists to indicate HCV infection. Assessment and Plan A? 22 y.o. @ 36.4 wks, MORALES, shortness of breath, chest pain. Abnormal EKG. - Patient Problems (1) Chest pain during Current Visit: Yes Status: Acute Plan to address problem: Consulted with Dr. Flores. Admit to labor and delivery for observation. Echo ordered. Monitor vital signs. Repeat CMP ordered for AM. (2) with 36 completed weeks gestation Current Visit: Yes Status: Acute Plan to address problem: Continuous EFM to monitor status. (3) Abnormal EKG Current Visit: Yes Status: Acute Plan to address problem: Echo ordered. <PAPI FLORES - Last Filed: 06/18/22 06:50> History of Present Illness Date of admission: 06/17/22 20:38 Past History Past Medical History: other (Anxiety, depression, positive MITRA panel,, cholelithiasis) Medications and Allergies Active Meds: Active Medications Acetaminophen (Acetaminophen 325 Mg Tab) 1,000 mg PO Q6H PRN PRN Reason: Pain MILD(1-3)/Fever >100.5/MORALES Al Hydrox/Mg Hydrox/Simethicone (Alum-Mag Hydroxide-Simethicone [phone]/5ml Oral Liqd 30 Ml) 30 ml PO Q6H PRN PRN Reason: Indigestion Diphenhydramine HCl (Diphenhydramine 25 Mg Cap) 25 mg PO Q6H PRN PRN Reason: Itching Docusate Sodium (Docusate Sodium 100 Mg Cap) 100 mg PO Q12H PRN PRN Reason: Constipation Magnesium Hydroxide (Magnesium Hydroxide (Mom) Oral Liqd Udc) 30 ml PO QHS PRN PRN Reason: Laxative Effect Multivitamins/Iron/Calcium ( Tye06-Bu Fumarate-Folic Acid Vit Tab) 1 each PO QDAY LANA Ondansetron HCl (Ondansetron 4 Mg/2 Ml Inj) 4 mg IV Q6H PRN PRN Reason: Nausea And Vomiting Simethicone (Simethicone 80 Mg Chew Tab) 80 mg PO Q6H PRN PRN Reason: Gas pain Sodium Chloride (Sodium Chloride 0.9% 10 Ml Flush Syringe) 10 ml IV PRN PRN PRN Reason: LINE FLUSH - Vital Signs Vital signs: Vital Signs Pulse BP 97 H 127/71 06/17/22 16:32 06/17/22 16:32 Temp Pulse Resp BP Pulse Ox 97.6 F 103 H 17 119/68 94 06/17/22 22:30 06/18/22 01:32 06/17/22 22:30 06/18/22 01:17 06/18/22 01:32 Results Result Diagrams: 06/17/22 17:28 06/17/22 17:28 Abnormal lab results 06/17/22 06/17/22 Range/Units 17:28 17:28 RBC 3.48 L (3.65-5.03) M/mm3 RDW 12.8 L (13.2-15.2) % Carbon Dioxide 20 L (22-30) mmol/L Creatinine 0.4 L (0.6-1.2) mg/dL AST 47 H (5-40) units/L Alkaline Phosphatase 174 H (35-129) units/L Albumin 3.0 L (3.9-5) g/dL All other labs normal.
[2022-06-17] MEDS ORDERED: LACTATED RINGERS 1,000 ML ONE (23:04)
[2022-06-18 01:18] VITALS: BP 119/68
--- NOTE | 2022-06-18 08:14 | Event Note ---
Date: 06/18/22 echo in progress, pt requesting regular diet. plan to be made after echo has been completed.
[2022-06-18] MEDS ORDERED: PRENATAL VIT27-FE FUMARATE-FOLIC ACID VIT TAB PO SCH (10:00)
[2022-06-18 12:17] LABS: Alanine Aminotransferase 62 units/L (7-56); Albumin 3.3 g/dL (3.9-5); Blood Urea Nitrogen 6 mg/dL (7-17); Hemolysis Index 3
[2022-06-18 12:21] LABS: BUN/Creatinine Ratio 15
--- NOTE | 2022-06-18 12:36 | Discharge Summary ---
Providers - Providers Date of Admission: 06/17/22 20:38 Date of discharge: 06/18/22 Attending physician: PAPI CARIRON Primary care physician: PAPI CARRION Hospitalization Reason for admission: chest pain, 36wk IUP Condition: Good Pertinent studies: ECHO normal Disposition: 01 HOME / SELF CARE / HOMELESS Final Discharge Diagnosis (Prints w/discharge instructions): Gallbladder disease, IUP @ 36wk Time spent for discharge: 20 - Discharge Diagnoses (1) Gall bladder disease Status: Acute (2) with 36 completed weeks gestation Status: Acute Core Measure Documentation - Palliative Care Palliative Care/ Comfort Measures: Not Applicable - Core Measures Any of the following diagnoses?: none Exam - Constitutional Vitals: Temp Pulse Resp BP Pulse Ox 98.5 F 103 H 18 119/68 97 06/18/22 08:13 06/18/22 01:32 06/18/22 08:13 06/18/22 01:17 06/18/22 08:14 General appearance: Present: no acute distress, well-nourished - EENT Eyes: Present: PERRL ENT: hearing intact, clear oral mucosa - Neck Neck: Present: supple, normal ROM - Respiratory Respiratory effort: normal Respiratory: bilateral: CTA - Cardiovascular Rhythm: regular Heart Sounds: Absent: rub, click - Extremities Extremities: No edema Peripheral Pulses: within normal limits - Abdominal General gastrointestinal: Present: soft, non-tender, non-distended, normal bowel sounds Female genitourinary: Present: normal - Integumentary Integumentary: Present: clear, warm, dry - Musculoskeletal Musculoskeletal: gait normal, strength equal bilaterally - Psychiatric Psychiatric: appropriate mood/affect, intact judgment & insight - Neurologic Neurologic: CNII-XII intact, moves all extremities - Additional findings Additional findings: FHT cat 1, occasional irregular ctx Plan Activity: no restrictions Diet: low fat Follow up with: PAPI CARRION MD [Primary Care Provider] - 7 Days
--- NOTE | 2022-06-19 10:23 | Electrocardiograph Report ---
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
== END 2022-06-18 12:30 | disposition home or self-care (01) ==
LOC: TRG 15:35 → APU 15:38 → LD 20:38 → TRG 20:38
PROVIDERS: ADMIT Obstetrics & Gynecology; ATTEND Obstetrics & Gynecology
DX: O26.893 Other specified pregnancy related conditions, third trimester (principal); Z20.822 Contact with and (suspected) exposure to COVID-19; R07.89 Other chest pain; K82.9 Disease of gallbladder, unspecified; O09.93 Supervision of high risk pregnancy, unspecified, third trimester; R51.9 Headache, unspecified; R94.31 Abnormal electrocardiogram [ECG] [EKG]; F41.9 Anxiety disorder, unspecified; F32.9 Major depressive disorder, single episode, unspecified; Z3A.36 36 weeks gestation of pregnancy; Z98.891 History of uterine scar from previous surgery; Z79.899 Other long term (current) drug therapy; Z98.890 Other specified postprocedural states
CPT/HCPCS: 36415; 59025; 71045; 80053; 81001; 85027; 86850; 86900; 86901; 93005; C8929; G0378; G0379; U0003; 93306

== ENCOUNTER 2022-06-20 12:52 | Outpatient (CLI) | payer BC, OTHER ==
[2022-06-20 14:29] VITALS: BP 119/67
--- NOTE | 2022-06-20 16:10 | Ultrasound Report ---
ULTRASOUND OBSTETRIC ULTRASOUND BIOPHYSICAL PROFILE INDICATION: SEVERE IUGR. Clinical Gestational Age (GA): 37.0 weeks TECHNIQUE: Transabdominal. COMPARISON: Abdominal ultrasound from 05/29/2022. FINDINGS: There is a single intrauterine . Biparietal Diameter = 9.6 cm = 39 weeks, 0 day(s). Head Circumference = 34.1 cm = 39 weeks, 2 day(s). Abdominal Circumference = 34.7 cm = 38 weeks, 4 day(s). Femur Length = 6.8 cm = 34 weeks, 6 day(s). Average Ultrasound Age (AUA) = 38 weeks, 0 day(s). Heart Rate: 144 beats per minute. Estimated Weight in grams (if calculated): 3323 Estimated Weight Growth Percentile (if calculated): 78 Position: cephalic. Cervix: closed. Length in cm (if measured): Not measured Placenta: anterior and free of the os. Amniotic Fluid Volume: normal Amniotic Fluid Index (SHAY) in cm (if calculated): 9.8. Maternal Adnexa: No significant abnormality. BREATHING MOVEMENT = 2 GROSS BODY MOVEMENT = 2 TONE = 2 QUALITATIVE AMNIOTIC FLUID VOLUME = 2 TOTAL BIOPHYSICAL SCORE = / IMPRESSION: 1. Single, living intrauterine with estimated sonographic age of 38 weeks, 0 day(s). 2. No significant sonographic abnormality. 3. Biophysical profile of 05/19. Signer Name: Stefan Ivan MD Signed: 06/20/2022 4:05 PM Workstation Name: [email or web address]
== END 2022-06-20 14:54 | disposition home or self-care (01) ==
LOC: TRG 12:52 → APU 12:54 → TRG 14:54
PROVIDERS: ATTEND Obstetrics & Gynecology
DX: Z34.93 Encounter for supervision of normal pregnancy, unspecified, third trimester (principal); Z3A.37 37 weeks gestation of pregnancy
CPT/HCPCS: 76816; 76819

== ENCOUNTER 2022-07-01 20:44 | Outpatient (CLI) | payer BC, OTHER ==
[2022-07-01] MEDS ORDERED: diphenhydrAMINE 25 MG CAP PO ONE (22:30)
[2022-07-01] MEDS ORDERED: METOCLOPRAMIDE 10 MG/10 ML ORAL LIQD PO ONE (22:52)
[2022-07-01] MEDS ORDERED: METOCLOPRAMIDE 10 MG TAB PO ONE (22:52)
[2022-07-01] MEDS ORDERED: LACTATED RINGERS 1,000 ML ONE (23:35)
[2022-07-01] MEDS ORDERED: LACTATED RINGERS 1,000 ML IV ONE (23:36)
[2022-07-01 23:50] VITALS: BP 119/57
== END 2022-07-02 00:16 | disposition home or self-care (01) ==
LOC: TRG 20:44 → APU 20:46 → TRG 07-02 00:16
PROVIDERS: ATTEND Student in an Organized Health Care Education/Training Program
DX: O99.353 Diseases of the nervous system complicating pregnancy, third trimester (principal); G43.909 Migraine, unspecified, not intractable, without status migrainosus; O26.893 Other specified pregnancy related conditions, third trimester; M79.601 Pain in right arm; H53.8 Other visual disturbances; M79.89 Other specified soft tissue disorders; O62.9 Abnormality of forces of labor, unspecified; O13.3 Gestational [pregnancy-induced] hypertension without significant proteinuria, third trimester; Z3A.38 38 weeks gestation of pregnancy
CPT/HCPCS: 59025; J7120

== ENCOUNTER 2022-07-04 06:33 | Inpatient (IN) | payer BC, OTHER ==
[2022-07-02 11:06] LABS: Hematocrit 34.9 % (30.3-42.9); Hemoglobin 11.9 gm/dl (10.1-14.3); Mean Corpuscular HGB Conc 34 % (30-34); Mean Corpuscular Volume 96 fl (79-97); Platelet Count 241 K/mm3 (140-440); Red Blood Count 3.64 M/mm3 (3.65-5.03); Red Cell Distribution Width 12.8 % (13.2-15.2)
--- NOTE | 2022-07-03 12:21 | History and Physical Report ---
History of Present Illness Date of examination: 06/27/22 Date of admission: 07/04/2022 Chief complaint: here for c/s and btl History of present illness: Pt here for preop for c/s with salpingectomy. All risk/benefits/alternatives were d/w pt and questions were addressed and answered. Consents signed and placed on the chart. Past History : 4 Term Births: 1 Premature Births: 0 Living Children: 1 Para: 1 Mult. Births: 0 Prev : 1 Prev. attempt? 0 Aborta: 2 Elect. Ab: 0 Spont. Ab: 2 Ectopics: 0 # 1 Delivery date: 12/2018 Weeks Gestation: 38 labor: no Delivery type: Hours of labor: 19 Anesthesia type: epidural Infant Sex: Female weight: 7-15 Comments: Breech # 2 Delivery date: 08/2019 Weeks Gestation: ? Delivery type: SAB # 3 Delivery date: 02/2021 Weeks Gestation: ? Delivery type: SAB Past Medical History: Reviewed and updated today: Anxiety Depression Positive MITRA panel - f/u with Rheumatology Past Surgical History: Reviewed and updated today: Broken left wrist (2011) Family History Summary: Father - Has Family History of Alcoholism - Entered On: 11/07/2021 General Comments - FH: Mother - bipolar, alcoholism, thyriod disease Social History: Patient is Smoking History: Patient has never smoked. 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 Infection History Hx of STD: none HIV Risk Eval: no Hepatitis B Risk Eval: low risk Personal hx. of genital herpes: no Rash, Viral, or Febrile illness since last LMP? no Varicella/Chicken Pox Status: Previous Disease TB Risk: no Genetic History Congenital Heart Defect: Mom: no Dad: no Marco A Disease: Mom: no Dad: no Thalassemia Mom: no Dad: no Neural Tube Defect Mom: no Dad: no Down's Syndrome Mom: no Dad: no Scott-Sachs Mom: no Dad: no Sickle Cell Disease/Trait Mom: no Dad: unknown Hemophilia Mom: no Dad: no Muscular Dystrophy Mom: no Dad: no Cystic Fibrosis Mom: no Dad: no [place] Chorea Mom: no Dad: no Mental Retardation Mom: no Dad: no Fragile X Mom: no Dad: no Other Genetic/Chromosomal Disorder Mom: no Dad: no Child w/other defect Mom: no Dad: no Comments/Counseling: Both parents may be SCT carriers. Pt's daughter has trait per pt. 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: denies: abnormal PAP smear Social history: no significant social history, - Obstetrical History Expected Date of Delivery: 07/11/22 Actual Gestation: 38 Week(s) 6 Day(s) : 4 Para: 1 Spontaneous Abortions: 2 Number of Living Children: 1 Medications and Allergies Allergies Allergy/AdvReac Type Severity Reaction Status Date / Time coconut Allergy Angioedema Verified 06/26/22 15:23 nickel Allergy Rash Verified 06/26/22 15:23 Home Medications Medication Instructions Recorded Confirmed Last Taken Type Pnv No.95/Ferrous Fum/Folic AC 1 each PO DAILY #30 tablet 12/24/18 06/26/22 Unknown Rx [ Vitamin Tablet] Review of Systems All systems: negative - Vital Signs Vital signs: Vital Signs Temp Pulse Resp BP Pulse Ox 98.1 F 100 H 16 133/79 100 07/02/22 10:45 07/02/22 10:45 07/02/22 10:45 07/02/22 10:45 07/02/22 10:45 Temp Pulse Resp BP Pulse Ox 98.1 F 100 H 16 133/79 100 07/02/22 10:45 07/02/22 10:45 07/02/22 10:45 07/02/22 10:45 07/02/22 10:45 - Physical Exam Cardiovascular: Normal S1, Normal S2 Lungs: Positive: Clear to auscultation, Normal air movement Abdomen: Positive: normal appearance, soft. Negative: distention, tenderness, guarding Genitourinary (Female): Positive: other (deferred) Deep Tendon Reflex Grade: Normal +2 - Obstetrical FHR: auscultation normal Results Result Diagrams: 07/02/22 10:50 All other labs normal. Assessment and Plan - Patient Problems (1) Previous delivery affecting , antepartum Status: Acute Plan to address problem: -admit and prepare for c/s -consents singed and placed on the chart (2) Encounter for sterilization Status: Acute Plan to address problem: -desires salpingectomy -consent signed and placed on the chart.
[~2022-07-04 06:33] MED LIST: BICITRA ORAL LIQD 30ML PO ONE; FAMOTIDINE 20 MG/2 ML INJ IV ONE; LACTATED RINGERS 1,000 ML IV SCH; METOCLOPRAMIDE 10 MG/2 ML INJ IV ONE; OXYTOCIN DRIP 30 UNITS/500 ML BAG IV SCH; ceFAZolin/Water 2 GM/20 ML 2 GM/20 ML SYRINGE IV NR
[2022-07-04] MEDS ORDERED: METOCLOPRAMIDE 10 MG/2 ML INJ IV SCH (12:00)
[2022-07-04] MEDS ORDERED: BICITRA ORAL LIQD 30ML PO SCH (12:00)
[2022-07-04] MEDS ORDERED: FAMOTIDINE 20 MG/2 ML INJ IV SCH (12:00)
[2022-07-04] MEDS ORDERED: D5W/LACTATED RINGERS 1,000 ML IV ONE (14:06)
[2022-07-04] MEDS ORDERED: D5W/LACTATED RINGERS 500 ML IV SCH (14:30)
--- NOTE | 2022-07-04 16:20 | Anesthesia Day of Surgery ---
Anesthesia Day of Surgery - Day of Surgery Patient Examined: Yes Patient H&P Reviewed: Yes Patient is NPO: Yes
--- NOTE | 2022-07-04 16:22 | Anesthesia Consultation ---
Anesthesia Consult and Med Hx Date of service: 07/04/22 - Airway Anesthetic Teeth Evaluation: Good ROM Head & Neck: Adequate Mental/Hyoid Distance: Adequate Mallampati Class: Class II Intubation Access Assessment: Probably Good - Pulmonary Exam CTA: Yes - Cardiac Exam Cardiac Exam: RRR - Pre-Operative Health Status ASA Pre-Surgery Classification: ASA3 Proposed Anesthetic Plan: Spinal - Pulmonary Hx Smoking: No Hx Asthma: No COPD: No Hx Pneumonia: No - Cardiovascular System Hx Hypertension: No - Central Nervous System Hx Seizures: No Hx Psychiatric Problems: No - Endocrine Hx Renal Disease: No Hx End Stage Renal Disease: No Hx Hypothyroidism: No Hx Hyperthyroidism: No - Hematic Hx Anemia: No Hx Sickle Cell Disease: No - Other Systems Hx Alcohol Use: Yes (recreational use prior to ) Hx Substance Use: No Hx Cancer: No
[2022-07-04] MEDS ORDERED: BUPIVACAINE/PF (0.5%) 5 MG/1 ML 30 ML VIAL INFILTRATI ONE (17:03)
[2022-07-04] MEDS ORDERED: PHENYLEPHRINE/NS 1,000 MCG/10 ML SYRINGE (OR USE) IV ONE (17:05)
[2022-07-04] MEDS ORDERED: ONDANSETRON 4 MG/2 ML INJ ONE (17:05)
[2022-07-04] MEDS ORDERED: LACTATED RINGERS 1,000 ML ONE ×2 (17:07→17:54)
[2022-07-04] MEDS ORDERED: ePHEDrine SULFATE 50 MG/1 ML INJ ONE (17:12)
[2022-07-04] MEDS ORDERED: dexAMETHasone 20 MG/5 ML VIAL ONE (18:18)
--- NOTE | 2022-07-04 18:50 | Operative Report ---
Operative Report Operative Report: Date of Procedure: July 04, 2022 Preoperative diagnosis: IUP @39 weeks, history of section, desire for permanent sterilization Postoperative diagnosis: same, s/p repeat section and bilateral salpingectomy Procedure: Low transverse section with bilateral salpingectomy Surgeon: Lucia Rod MD Indigo Vat Tender Cloth: LANCE Anesthesia: Spinal Complications: none QBL: 302 ml IV Fluids: 1900 ml UOP: 150 ml, clear urine at the end of procedure Indications: History of section and desire for permanent sterilization Findings: 3860 g male in left occiput posterior position cephalic presentation with Apgars 9 & 9 Amniotic fluid clear Fallopian tubes normal in appearance bilaterally Ovaries normal in appearance bilaterally Procedure: The patient was taken to the operating room where spinal anesthesia was placed and found to be adequate. 2 g Ancef was given prior to the procedure. She was then prepared and draped in the usual sterile fashion in the dorsal supine position with a leftward tilt. A Pfannenstiel skin incision was made with the scalpel and carried through to the underlying layer of fascia with the bovie. The fascia was incised in the midline and the incision extended laterally. The superior aspect of the fascial incision was then grasped with the Collin's clamps, elevated, and the underlying rectus muscles dissected off bluntly and with sharp dissection using scalpel. Attention was then turned to the inferior aspect of this incision which, in a similar fashion, was grasped, tented up with the Collin clamps, and the rectus was dissected off bluntly and with sharp dissection. The rectus muscles were then in the midline, and the peritoneum identified and entered bluntly. The peritoneal incision was then extended superiorly and inferiorly with good visualization of the bladder. The bladder blade was then inserted and the vesicouterine peritoneum identified, grasped with the pick ups, and entered sharply with the Metzenbaum scissors. This incision was then extended laterally and the bladder flap created di gitally. The bladder blade was then reinserted and the lower uterine segment incised in a transverse fashion with the scalpel. The uterine incision was then extended laterally digitally. The bladder blade was then removed and the was delivered via LOP position. The nose and mouth were suctioned with the bulb suction and the cord clamped and cut. The infant was handed off to the waiting pediatricians.The placenta was then removed; the uterus exteriorized and cleared of all clots and debris. The uterine incision was repaired with 0 vicryl in a running locked fashion to obtain excellent hemostasis. An imbrication layer was done. Attention was then turned to the fallopian tubes. The right fallopian tube was grasped with Alison clamps. Edna clamps were placed below the fallopian tube and the tube was then coagulated and cut using the Bovie to the cornua creating a tubal stump. Hemostasis was noted. The left tube was treated in a similar manner. Attention was returned to the closed uterine hysterotomy. An area of oozing was noted and a figure of eight suture was placed giving excellent hemostasis. Uterus returned to the abdomen. Surgicel was placed over the incision. The rectus muscle was reapproximated with 2-0 vicryl. Surgicel was placed over the rectus muscle. The fascia was reapproximated with 2-0 vicryl in a running fashion. Subcutaneous layer reapproximated with interrupted sutures of 0 vicryl. The skin was closed with 4-0 monocryl subcuticular stitch and the incision sealed with Steri-strips.The patient tolerated the procedure well. Sponge, lap, needle counts correct X 2. The patient was taken to the recovery room in a stable condition.
--- NOTE | 2022-07-04 18:51 | Progress Note ---
Spinal Anesthesia Block - Spinal Anesthesia Block Start Time: 16:44 Stop Time: 16:47 Performed by:: ALYCIA KEENE Procedure: Patient IDed, H&P reviewed, all questions and concerns were answered, and consent was signed. Timeout was performed at bedside. Patient in sitting position. Sterile prep and drape was performed. [3] ml of 1% lidocaine skin wheal at L[3]- L [4] x 1 attempts. Needle introducer advanced. 25 gauge spinal needle advanced. Clear, free flowing CSF. negative blood, negative paresthesia. Spinal dose given. All needles removed. Patient tolerated procedure.
--- NOTE | 2022-07-04 18:53 | Progress Note ---
Regional Anesthesia Block - Regional Anesthesia Block Start Time: 18:37 Stop Time: 18:42 Performed By:: ALYCIA KEENE Procedure: Patient consented for TAP block for post surgical pain management. Patient identified, monitors placed, and time out performed. TAP identified bilaterally via ultrasound. Skin prepped bilaterally with [chlorhexidine] and [22g stimuplex] needle advanced to the TAP. [Marcaine 0.22% 35ml] injected under ultrasound guidance on the [left] side. [Marcaine 0.22% 35ml] injected under ultrasound guidance on the [right] side. Negative aspiration every 5mL, No change in heart rate or rhythm. Patient tolerated the procedure well. No apparent complications seen.
[2022-07-04] MEDS ORDERED: WITCH HAZEL/ GLYCERIN PAD TP PRN (20:00)
[2022-07-04] MEDS ORDERED: LANOLIN/ZINC/DIMETHICONE (LANSINOH) 7 GM TP PRN (20:00)
[2022-07-04] MEDS ORDERED: OXYTOCIN DRIP 30 UNITS/500 ML BAG IV SCH (20:00)
[2022-07-04] MEDS ORDERED: NALOXONE 0.4 MG/1 ML INJ IV PRN (20:00)
[2022-07-04] MEDS: ONDANSETRON 4 MG/2 ML INJ IV PRN (21:32)
[2022-07-04] MEDS: MORPHINE 2 MG/1 ML INJ IV PRN (22:33)
[2022-07-04] MEDS ORDERED: LACTATED RINGERS 1,000 ML IV SCH (23:00)
[2022-07-05] MEDS: ONDANSETRON 4 MG/2 ML INJ IV PRN (01:45)
[2022-07-05] MEDS: KETOROLAC 30 MG/1 ML INJ IV SCH ×3 (01:45→17:18)
[2022-07-05 06:13] LABS: Hematocrit 32.4 % (30.3-42.9); Hemoglobin 10.8 gm/dl (10.1-14.3)
--- NOTE | 2022-07-05 11:22 | Progress Note ---
Assessment and Plan patient doing well, walking around room and using bathroom. Dressing D&I. VSSAF, H&H 10.8/32.4, + flatus - Patient Problems (1) delivery delivered Current Visit: Yes Status: Acute Plan to address problem: continue postop pathway Advance diet and activity as tolerated anticipate d/c home tomorrow. Subjective - Subjective Date of service: 07/05/22 Principal diagnosis: postop c/s day #1 Patient reports: appetite normal, voiding normally, pain well controlled, flatus, ambulating normally, no dizzy ambulation, no nauseated : doing well Objective - Vital Signs Latest vital signs: Vital Signs Temp Pulse Resp BP Pulse Ox Pulse Ox 07/05/22 08:48 97.5 F L 99 H 19 121/81 99 07/05/22 03:56 97.6 F 76 18 115/62 100 07/04/22 22:33 18 07/04/22 20:45 100 07/04/22 20:00 80 14 127/57 98 07/04/22 19:45 72 13 120/63 98 07/04/22 19:30 73 20 120/66 97 07/04/22 19:15 88 14 116/56 96 07/04/22 19:00 97.5 F L 72 15 120/54 98 07/04/22 18:49 97.5 F L 74 18 107/42 97 07/04/22 16:36 111 H 92 07/04/22 16:31 101 H 99 07/04/22 16:26 82 93 07/04/22 16:21 92 H 97 07/04/22 16:16 92 H 96 07/04/22 16:12 91 H 117/56 Intake and Output 07/04/22 07/05/22 07/05/22 23:59 07:59 15:59 Intake Total 2250 Output Total 750 500 Balance 1500 -500 Intake: IV 2200 Oral 50 Output: Urine 650 500 Indwelling 200 500 Indwelling Catheter 200 Emesis 100 Other: Total, Intake Amount 50 Total, Output Amount 300 Estimated Blood Loss 302 - Exam Breasts: Present: normal Cardiovascular: Present: Regular rate Lungs: Present: Clear to auscultation, Normal air movement Abdomen: Present: normal appearance, soft Vulva: both: normal Uterus: Present: normal, firm, fundal height at umbilicus Extremities: Present: normal Incision: Present: normal, dry, dressed
[2022-07-05] MEDS: MORPHINE 2 MG/1 ML INJ IV PRN (12:40)
[2022-07-05] MEDS ORDERED: SIMETHICONE 80 MG CHEW TAB PO PRN (13:46)
--- NOTE | 2022-07-05 14:06 | Post Anesthesia Evaluation ---
- Post Anesthesia Evaluation Patient Participated: Yes Airway Patent: Yes Stable Respiratory Function: Yes Nausea/Vomiting: No Temp > 96.8F: Yes Pain Manageable: Yes Adequeate Hydration: Yes Anesthesia Complications: No Block Receding Appropriately: Yes Patient on Ventilator: No
[2022-07-05] MEDS: oxyCODONE /ACETAMINOPHEN 5-325MG TAB PO PRN ×2 (15:33→22:42)
[2022-07-05] MEDS: PRENATAL VIT27-FE FUMARATE-FOLIC ACID VIT TAB PO SCH (17:18)
[2022-07-05] MEDS: IBUPROFEN 800 MG TAB PO SCH ×2 (17:19→18:15)
[2022-07-06] MEDS: IBUPROFEN 800 MG TAB PO SCH ×3 (00:38→12:10)
[2022-07-06] MEDS: oxyCODONE /ACETAMINOPHEN 5-325MG TAB PO PRN ×2 (04:36→12:37)
[2022-07-06] MEDS ORDERED: TETANUS,DIPH,PERTUSS(ACELL) VACCINE 0.5 ML SYRINGE IM ONE (06:00)
[2022-07-06] MEDS: MORPHINE 2 MG/1 ML INJ IV PRN (09:00)
[2022-07-06] MEDS: PRENATAL VIT27-FE FUMARATE-FOLIC ACID VIT TAB PO SCH (09:00)
--- NOTE | 2022-07-06 14:12 | Discharge Summary ---
Providers - Providers Date of Admission: 07/04/22 09:19 Date of discharge: 07/06/22 (desires d/c home) Attending physician: KEVIN BAXTER MD Primary care physician: KEVIN BAXTER MD Hospitalization Reason for admission: repeat c/s Condition: Good Pertinent studies: postop H&H 10.8/32.4 Procedures: repeat c/s Hospital course: uncomplicated repeat c/s and postop course Disposition: 01 HOME / SELF CARE / HOMELESS Final Discharge Diagnosis (Prints w/discharge instructions): postop c/s Time spent for discharge: 15 - Discharge Diagnoses (1) delivery delivered Status: Acute Core Measure Documentation - Palliative Care Palliative Care/ Comfort Measures: Not Applicable - Core Measures Any of the following diagnoses?: none Exam - Constitutional Vitals: Temp Pulse Resp BP Pulse Ox 97.9 F 76 18 123/72 100 07/06/22 09:24 07/06/22 09:24 07/06/22 09:24 07/06/22 09:24 07/06/22 09:24 General appearance: Present: no acute distress, well-nourished - EENT Eyes: Present: PERRL ENT: hearing intact, clear oral mucosa - Neck Neck: Present: supple, normal ROM - Respiratory Respiratory effort: normal Respiratory: bilateral: CTA - Cardiovascular Rhythm: regular Heart Sounds: Absent: rub, click - Extremities Extremities: No edema Peripheral Pulses: within normal limits - Abdominal General gastrointestinal: Present: soft, non-tender, non-distended, normal bowel sounds Female genitourinary: Present: normal - Integumentary Integumentary: Present: clear, warm, dry - Musculoskeletal Musculoskeletal: gait normal, strength equal bilaterally - Psychiatric Psychiatric: appropriate mood/affect, intact judgment & insight - Neurologic Neurologic: CNII-XII intact, moves all extremities - Additional findings Additional findings: lochia scant, fundus firm Plan Activity: advance as tolerated Diet: regular Wound: open to air, keep clean and dry Follow up with: KEVIN BAXTER MD [Primary Care Provider] - 7 Days Prescriptions: Docusate Sodium [Colace] 100 mg PO BID #60 capsule Lidocain2.5%/Prilocai2.5% [Emla] 1 applic TP ONCE #1 tube Ibuprofen [Motrin 800 MG tab] 800 mg PO Q8HR #30 tablet oxyCODONE /ACETAMINOPHEN [Percocet 5/325] 1 tab PO Q6HR PRN #20 tablet PRN Reason: Pain Vit-Fe Fumar-FA [ Vitamin] 1 tab PO QDAY #30 tablet
[2022-07-06 19:18] VITALS: BP 126/72
== END 2022-07-06 17:00 | disposition home or self-care (01) | DRG 785 ==
LOC: APU 09:19 → OB 21:28
PROVIDERS: ADMIT Student in an Organized Health Care Education/Training Program; ATTEND Student in an Organized Health Care Education/Training Program
PROC: 10D00Z1 Extraction of Products of Conception, Low, Open Approach (ICD-10-PCS; principal; 2022-07-04)
PROC: 0UB70ZZ Excision of Bilateral Fallopian Tubes, Open Approach (ICD-10-PCS; 2022-07-04)
PROC: 3E0T3BZ Introduction of Anesthetic Agent into Peripheral Nerves and Plexi, Percutaneous Approach (ICD-10-PCS; 2022-07-04)
PROC: 3E0234Z Introduction of Serum, Toxoid and Vaccine into Muscle, Percutaneous Approach (ICD-10-PCS; 2022-07-06)
DX: O34.211 Maternal care for low transverse scar from previous cesarean delivery (principal); Z37.0 Single live birth; Z20.822 Contact with and (suspected) exposure to COVID-19; Z3A.39 39 weeks gestation of pregnancy; Z23 Encounter for immunization; Z91.018 Allergy to other foods; Z91.048 Other nonmedicinal substance allergy status; Z30.2 Encounter for sterilization
CPT/HCPCS: 36415; 82962; 85014; 85018; 85027; 86592; 86850; 86900; 86901; 88302; 90471; 90715; G0378; J3490; J7060; J7121; C1765; J1100; J1885; J2270; J2370; J2405; J2765; J7120; U0003